=== PATIENT | male | born 1990 | race Caucasian/White ===

== ENCOUNTER 2018-05-23 19:36 | Emergency (ER) | payer SELFPAY ==
[2018-05-23 19:37] VITALS: BP 166/98; PULSE 99; RESP 18; TEMP 37.1; O2SAT 97; BMI 34.2
[2018-05-23 20:03] LABS: Mucous, Urine 0 SEEN /hpf (<or=2+)
[2018-05-23 20:14] LABS: Color, Urine Yellow (Yellow); Glucose, Dipstick Normal (Normal); Ketone-Dipstick 5 mg/dl (Negative); Leukocyte Esterase-Dipstick 25 /ul (Negative); Nitrite-Dipstick Negative (Negative); Occult Blood-Urine 250 /ul (Negative); Protein-Dipstick 100 mg/dl (Negative); Specific Gravity, Urine 1.015 (1.002-1.030); Urine Bilirubin Dipstick Negative (Negative); Urine Clarity Sl. Cloudy (Clear); Urine Urobilinogen Normal (Normal)
[2018-05-23 20:24] LABS: Bacteria 1+ /hpf (None Seen); Red Blood Cells-Urine > 100 SEEN /hpf (0-5); Squamous Epithelial Cells - UA 5-10 SEEN /hpf (0-5); White Blood Cells 5-10 SEEN /hpf (0-5)
--- NOTE | 2018-05-23 21:59 | ED.DCSUM_ITS ---
- ER Visit Summary Date of Service: 05/23/18 Chief Complaint: Feels like UTI History of Present Illness: The patient is a 28 M presenting with concern for UTI. Patient has had these symptoms in the past associated with a UTI. He complains of urinary urgency, dysuria. He noticed blood in his urine today. He denies back pain or abdominal pain. Denies concern for STD. He denies fever. Denies testicular pain or swelling. Denies other complaints. Physical Examination: Vitals are stable. Patient is afebrile. Alert no acute distress. Nontoxic HEENT exam is unremarkable. Lungs are clear and equal bilaterally. Heart is regular rate and rhythm. Abdomen is soft nontender nondistended. No guarding or rebound : normal, no testicular tenderness, no discharge, no rash Back: no CVA tenderness Extremities are unremarkable. Skin is warm and dry. Remainder of exam is unremarkable. Emergency Department Course and Treatment: Urinalysis shows 5-10 white blood cells, over 100 red blood cells, 1+ bacteria. Culture was sent for GC and chlamydia. Urine culture was sent. He is given Cipro. Advised to follow-up with his primary care physician. Advised return to ED if worsening complaints. Disposition: Discharge home Impression: UTI This note was generated with [employer] dictation software. It may contain incorrect words, spelling, and punctuation that were not noted in review of the chart prior to signing ED Disposition - Plan for ED Patient: Chief Complaint: Complaint Referrals: Olivier Bah III, MD [Primary Care Provider] -
--- NOTE | 2018-05-23 21:59 | ED.DEP ---
ED Disposition - Plan for ED Patient: Chief Complaint: Complaint Instructions: ED UTI Cystitis Male Prescriptions: Ciprofloxacin [Cipro] 500 mg PO BID #14 tablet Referrals: Olivier Bah III, MD [Primary Care Provider] -
[2018-05-23] MEDS: Ciprofloxacin 500 MG Tablet PO (22:07)
[2018-05-23 22:19] VITALS: BP 166/98; PULSE 99; RESP 18; O2SAT 97
[2018-05-24 00:17] LABS: Chlamydia Trachomatis by PCR Negative (Negative); Neisserai gonorrhoeae by PCR Negative (Negative); Probe Check PASS; Sample Adequacy Control PASS; Specimen Processing Control PASS
== END 2018-05-23 22:30 | disposition home or self-care (01) ==
PROVIDERS: Emergency Provider Emergency Medicine; Family Provider Family Medicine; PCP Family Medicine
DX: N39.0 Urinary tract infection, site not specified (principal); R31.9 Hematuria, unspecified; I10 Essential (primary) hypertension; Z79.899 Other long term (current) drug therapy
CPT/HCPCS: 81001; 87086; 87491; 87591; 99283

== ENCOUNTER 2019-09-10 21:28 | Emergency (ER) | payer SELFPAY ==
[2019-09-10 21:28] VITALS: BP 157/94; PULSE 90; RESP 15; TEMP 36.7; O2SAT 98; BMI 37.5
--- NOTE | 2019-09-10 22:07 | RAD_ITS ---
HISTORY: Constipation. Last bowel movement 3 days ago. Comparison imaging of the abdomen is a CT scan of the abdomen and pelvis from February 25, 2014. 2 views: Patient has a broken sternal wire in the inferior aspect of the sternum that appears to be newly broken since February 25, 2014. A stent graft device is present within the descending thoracic aorta from the patient's aortic dissection. Surgical clips within the left hemiabdomen is new and is superimposed over the left renal hilum. Bowel gas pattern is normal. No free air is perceived. No pneumatosis. Stool is present within the colon and rectum but not to a pathological degree. Scoliosis is mild. RAD/Abdomen Single View IMPRESSION: No acute disease. at 2243 Reported and signed by: Hema Mcgrath MD Electronically Signed: Hema Mcgrath MD at 22:42 EST Tel , Service support ,
--- NOTE | 2019-09-10 22:46 | ED.DCSUM_ITS ---
History of Present Illness Chief Complaint: Constipation Past Medical History - Allergies and Home Meds Allergies/Adverse Reactions: Allergies fentanyl Adverse Reaction (Verified 09/10/19 21:32) Other Primary Care Physician: Olivier Bah III, MD [Primary Care Provider] - Surgical History: - - Repair of aortic dissection with a frozen elephant trunk at the [facility]. Patient had remote history of aortic valve repair without replacement. Smoking Status: Current every day smoker - Family History Paternal Family History: Reports: Stroke - There is unclear if this was a cerebral aneurysm or not., - - Marfan's disease. Father had been temporarily on hemodialysis. Review of Systems General: Denies: Chills, Fever, Sweats Eyes: Denies: Visual changes - bilaterally, Diplopia ENT: Denies: Rhinorrhea, Sore throat Cardiovascular: Denies: Chest pain, Palpitations Respiratory: Denies: Dyspnea, Cough, Dyspnea on exertion Gastrointestinal: Reports: Constipation. Denies: Abdominal pain, Nausea, Vomiting, Diarrhea, Melena, Hematochezia Genitourinary: Denies: Dysuria, Hematuria, Frequency Musculoskeletal: Denies: Back pain, Extremity Pain Skin: Denies: Rash, Wounds Neurological: Denies: Headache, Weakness, Numbness Physical Exam Vital Signs/Narrative: Vital Signs Temp Pulse Resp BP Pulse Ox 09/10/19 21:28 98.0 F 90 15 157/94 H 98 Inital Vital Signs reviewed: Yes General: Well nourished, Well developed, No Acute Distress Diagnostic/Tx/Re-eval - Medical Decision Making Abdominal x-ray reveals stool throughout the colon. A lot of the stool appears well formed and I suspect that there is not a fecal impaction but rather diffuse constipation. Patient will be taking magnesium citrate and was encouraged to drink plenty of fluids and start a stool softener. Patient also is asking referral to a manufacturing director for a lesion on his back. There is a small papular lesion that is pearly white. I will refer him to dermatology He is asking also what to do about chronic ingrown toenails and hammertoes and I will refer him to podiatry ED Disposition - Plan for ED Patient: Disposition: Home or Assisted Living Diagnosis: Constipation Instructions: CONSTIPATION (Adult) Prescriptions: Magnesium Citrate [Citrate Of Magnesia] 300 ml PO X1 #2 bottle Prescription Printed Referrals: Olivier Bah III, MD [Primary Care Provider] - As Needed Xi Marx [NON-STAFF] - (for dermatology) Thomas Jon DPM [STAFF PHYSICIAN] - (for your toes)
[2019-09-10 23:06] VITALS: PULSE 78; RESP 16; O2SAT 98
[2019-09-10] MEDS: Magnesium Citrate 300 ML PO (23:06)
== END 2019-09-10 23:07 | disposition home or self-care (01) ==
PROVIDERS: Emergency Provider Emergency Medicine; Family Provider Family Medicine; PCP Family Medicine
DX: K59.00 Constipation, unspecified (principal); R23.8 Other skin changes; L60.0 Ingrowing nail; M20.40 Other hammer toe(s) (acquired), unspecified foot; F17.200 Nicotine dependence, unspecified, uncomplicated
CPT/HCPCS: 74018; 99282

== ENCOUNTER 2019-12-13 09:29 | Emergency (ER) | payer SELFPAY ==
[2019-12-13 09:30] VITALS: BP 176/98; PULSE 86; RESP 18; TEMP 36.8; O2SAT 99; BMI 34.0
--- NOTE | 2019-12-13 09:34 | ED.RN ---
bp in triage taking on left arm 176/98. rechecked on rt arm 166/91.
--- NOTE | 2019-12-13 09:44 | CT_ITS ---
STUDY: CTA OF THE ABDOMINAL AORTA REASON FOR EXAM: Male, 29 years old. PT STATED ABD PAIN RADIATING TO BACK, HX OF MARFAN SYNDROME, HX AORTIC DISSECTION WITH REPAIR 2013 RADIATION DOSAGE (If Supplied By Facility): CTDIvol = ( 19.51 ) mGy, DLP = ( 1443.40 ) mGycm TECHNIQUE: Axial CT angiography multi-detector data acquisition was obtained from the to the following intravenous administration of 100ML ISOVUE 370. Axial images and MIP images were reconstructed from the axial data set. Post-processing of the angiographic images was performed, with multiplanar reformation and 3D reconstruction. Individualized dose optimization techniques were used for this CT. TECHNICAL QUALITY: Good COMPARISON: Comparison is made with prior examination dated February 25, 2014. Descriptors of Narrowing: None (0%) Mild (< 50%) Moderate (50-70%) Severe (70-90%) Subtotal/Total Occlusion (90-100%) Non-Evaluable (technically non-diagnostic FINDINGS: There is evidence of a type B dissection of the descending thoracic aorta just distal to the origin of the left subclavian artery extending down into the distal abdominal aorta. A stent graft is seen within the aortic arch and descending thoracic aorta within the true lumen. This extends into the distal portion of the thoracic aorta. There is partial opacification of the false lumen which lies along the medial aspect of the aorta. The aorta is dilated with a transverse dimension of 7.4 cm. This has progressed as compared to prior study. In the distal portion of the aortic arch. There is evidence of enlargement of the aorta. This measures 7.3 cm. Mural thrombus is seen outside the stent. Abdominal aorta: There is evidence of a dissection involving the abdominal aorta from the hiatus down to the distal aorta. Both the false and true lumens are opacified. The false lumen is bigger than the true lumen. The visceral branches of the superior mesenteric artery and celiac artery as well as the renal arteries originate from the true lumen. This extends to the common iliac arteries. The common iliac arteries are patent. There is no evidence of dissection. 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 The false lumen is bigger than the true lumen. The visceral branches arise from the true lumen. Endoluminal stent is seen in the region of the aortic arch extending to the mid thoracic aorta with aneurysmal dilatation. There is evidence of soft tissue density lying outside the stent graft. This marrow present a leak. No prior study is available for comparison. Electronically Signed: Steven Dillon, at 11:26 EDT , Service support ,
--- NOTE | 2019-12-13 09:46 | ED.VIS.GEN ---
History of Present Illness Informant: Patient Narrative: Patient presents the emergency room with a low back pain that radiates circumferentially to the front of his lower abdomen. He states it is worse with certain movements but not all. He states he thinks it may be musculoskeletal or a kidney stone. He states he has a history of Marfan's and has had aortic dissection surgical repair. He states that he is worried about aortic aneurysm. He states the pain is pulsating with his pulse. He notes testicular sensitivity wonders if that could be a kidney stone. He also notes that he tried to urinate this morning but could not. No nausea vomiting. No constipation though he did not have a bowel movement yesterday or today. No fevers or rashes. <Rafal Nguyen - Last Filed: 12/13/19 13:41> <Ramon Astudillo - Last Filed: 12/13/19 20:52> Chief Complaint: Abd Pain Past Medical History Surgical History: - - Repair of aortic dissection with a frozen elephant trunk at the [facility]. Patient had remote history of aortic valve repair without replacement. Smoking Status: Current every day smoker - Family History Paternal Family History: Reports: Stroke - There is unclear if this was a cerebral aneurysm or not., - - Marfan's disease. Father had been temporarily on hemodialysis. <Rafal Nguyen - Last Filed: 12/13/19 13:41> <Ramon Astudillo - Last Filed: 12/13/19 20:52> - Allergies and Home Meds Allergies/Adverse Reactions: Allergies fentanyl Adverse Reaction (Verified 12/13/19 09:32) Other Primary Care Physician: Olivier Bah III, MD [Primary Care Provider] - 3-5 Days Review of Systems General: Denies: Chills, Fever, Sweats Eyes: Denies: Visual changes - bilaterally, Diplopia ENT: Denies: Rhinorrhea, Sore throat Cardiovascular: Denies: Chest pain, Palpitations Respiratory: Denies: Dyspnea, Cough, Dyspnea on exertion Gastrointestinal: Reports: Abdominal pain. Denies: Nausea, Vomiting, Diarrhea, Melena, Hematochezia Genitourinary: Denies: Dysuria, Hematuria, Frequency Musculoskeletal: Reports: Back pain. Denies: Extremity Pain Skin: Denies: Rash, Wounds Neurological: Denies: Headache, Weakness, Numbness <Rafal Nguyen - Last Filed: 12/13/19 13:41> Physical Exam Vital Signs/Narrative: Vital Signs Temp Pulse Resp BP Pulse Ox 12/13/19 09:30 98.2 F 86 18 176/98 H 99 Inital Vital Signs reviewed: Yes General: Well nourished, Well developed, No Acute Distress Head: Normocephalic, Atraumatic Eyes: Perrl, EOMI ENT: Moist mucous membranes, No rhinorrhea Neck: Supple, Nontender Cardiovascular: Regular rate, Regular rhythm, No murmurs Respiratory: No distress, CTA bilaterally, Chest nontender Abdomen: Soft, Nontender, Nondistended, Normal bowel sounds, - - There is no palpable abdominal mass though body habitus does limit complete and confident examination Back: Nontender, Normal Inspection, - - The back is nontender to palpation however when I sit him up to 90 degrees and have him start to lean more forward flex and in the lumbar spine he complains of pain. Extremities: Nontender, No edema Skin: Normal color, No rash Neurological: Alert, Oriented x3, Cranial nerves II-XII grossly intact, Normal Strength, Normal Sensation Psychological: - - Patient appears anxious <Rafal Nguyen - Last Filed: 12/13/19 13:41> Vital Signs/Narrative: Vital Signs Pulse Resp BP Pulse Ox 12/13/19 13:00 75 22 H 132/67 H 96 <Ramon Astudillo - Last Filed: 12/13/19 20:52> Diagnostic/Tx/Re-eval - Medical Decision Making Basic labs show a leukocytosis of 15.7. Urinalysis is normal. Creatinine is normal. Patient's blood pressure significantly proved since he has been resting in the room. Currently at the time of this dictation he is 126/74. Heart rate is in the mid 70s. CTA of the chest abdomen pelvis was obtained. It needs to be noted that we do not have any other imaging of his aorta since 2013 which was the time of his dissection. On his imaging today there is evidence of a type B dissection of the aortic arch extending down into the distal abdominal aorta with opacification of the true and false lumen. The false lumen is bigger than the true lumen. The visceral branches arise from the true lumen. There is an endoluminal stent seen in the region of the aortic arch extending to the mid thoracic aorta with aneurysmal dilatation. There is evidence of soft tissue density line outside the stent graft. This may represent a leak. The aorta is dilated with a transverse diameter of 7.4 cm the abdominal aorta. Upon receipt of the CT read and discussion with the radiologist I called [facility] where he had a surgery and asked to speak with CT surgery. I am told that the surgeon long distance billing operator is currently operating and will call me back as soon as he is finished. It is unclear whether or not today's findings of is different than his post repair. Patient has been kept comfortable using morphine. Patient informed nursing who informed me that he feels that if he does not have an answer by 1430 hrs. he will leave AMA. - Critical Care Time Critical care time (excluding procedures): 30-74 minutes, Discussing w/Patient &/or Family/Mannequin Mold Maker, Discussing w/Consultants, Arranging Admission or Transfer, Performing Direct Patient Care at Bedside - 35 minutes <Rafal Nguyen - Last Filed: 12/13/19 13:41> - Medical Decision Making Care of the patient was turned over to me. [facility] did call back and recommended transferring the patient to the [facility] for evaluation. Patient is agreeable with this plan. Patient does want to know if he is allowed visitors. We will obtain this information when [facility] calls back with a bed and arrangements are being made. Patient was given repeat doses of morphine. Patient will be transferred to [facility] in stable condition. <Ramon Astudillo - Last Filed: 12/13/19 20:52> ED Disposition <Rafal Nguyen - Last Filed: 12/13/19 13:41> <Ramon Astudillo - Last Filed: 12/13/19 20:52> - Plan for ED Patient: Disposition: [facility] - Main Diagnosis: Lumbar back pain Instructions: ED Back Pain Acute or Chronic Prescriptions: Diazepam [Valium] 5 mg PO Q8 PRN #15 tab PRN Reason: back pain Prescription Printed Referrals: Olivier Bah III, MD [Primary Care Provider] - 3-5 Days Additional Instructions: I recommend Tylenol for pain and Valium to help muscles relax. Recommend use a heating pad. I would recommend following up with your doctor both locally and at [facility].
[2019-12-13] MEDS: Ondansetron 4 MG/2 ML Vial IV (09:48)
[2019-12-13] MEDS: Morphine 4 MG/ML Syringe IV ×5 (09:48→18:07)
[2019-12-13] MEDS: 0.9% Normal Saline 1,000 ML 150 ML IV ×2 (09:50→18:09)
[2019-12-13 09:56] LABS: Absolute Neutrophil Count 9.6 X10^3/uL (2.0-7.7); Basophil# 0.13 X10^3/uL; Basophil% 0.8 % (0-1); Eosinophil# 0.11 X10^3/uL; Eosinophils% 0.7 % (0-5); Hematocrit 43.1 % (40-54); Hemoglobin 14.4 g/dL (13.0-16.5); Lymphocyte % 21.7 % (19-41); Mean Corp Hgb Conc 33.4 g/dL (32-36); Mean Corpuscular Hgb 29.4 pg (27.0-32.0); Mean Corpuscular Volume 88.1 fL (80-94); Mean Platelet Vol. 10.2 fl (6.2-12.0); Monocyte# 2.35 X10^3/uL; NRBC Flagged by Analyzer 0 % (0-5); Neutrophil # 9.61 X10^3/uL (2.7-7.7); Neutrophil % 61.2 % (47-70); POSITIVE DIFFERENTIAL YES; Platelet Count 497 K/mm3 (150-450); RBC Distribution Width SD 41.9 fl (35.1-43.9); Red Blood Count 4.89 M/mm3 (4.6-6.2); White Blood Count 15.7 K/mm3 (4.4-11.0)
[2019-12-13 09:58] LABS: Differential Indicated SCAN CRITERIA MET
--- NOTE | 2019-12-13 10:03 | ED.RN ---
PT ATTEMPTED TO URINATE, UNABLE.
[2019-12-13 10:14] LABS: Differential Comment SCANNED
[2019-12-13 10:15] LABS: Red Cell Morphology NORM C+C NORMAL (NORM C&C)
[2019-12-13 10:18] LABS: AST(SGOT) 24 U/L (15-37); Alanine Aminotransfer ALT/SGPT 28 U/L (16-61); Albumin, Serum 4.3 g/dL (3.2-5.0); Alkaline Phosphatase 59 U/L (45-117); Anion Gap 4 (5-15); BUN 18 mg/dL (7-18); BUN/Creat Ratio 15.4 RATIO (10-20); Calcium,Total 9.1 mg/dL (8.5-10.1); Chloride 104 mmol/L (98-107); Creatinine, Serum 1.17 mg/dL (0.70-1.30); EST Glomerular Filtration Rate 77 mL/min (>60); Est Glom Filt Rate - Afr Amer 94 mL/min (>60); Estimated Creatinine Clearance 113.34 ml/min; Globulin 4.1 g/dL (2.2-4.2); Glucose 108 mg/dL (74-106); Lipase 102 U/L (73-393); Potassium 3.6 mmol/L (3.5-5.1); Protein, Total 8.4 g/dL (6.4-8.2); Sodium Level 138 mmol/L (136-145)
[2019-12-13 11:40] VITALS: BP 123/56; PULSE 69; RESP 17; O2SAT 98
[2019-12-13 12:02] LABS: Bacteria 0 SEEN /hpf (None Seen); Mucous, Urine 0 SEEN /hpf (<or=2+); Squamous Epithelial Cells - UA 0 SEEN /hpf (0-5); White Blood Cells 0 SEEN /hpf (0-5)
[2019-12-13 12:11] LABS: Color, Urine Yellow (Yellow); Glucose, Dipstick Normal (Normal); Ketone-Dipstick Negative (Negative); Leukocyte Esterase-Dipstick Negative /ul (Negative); Nitrite-Dipstick Negative (Negative); Occult Blood-Urine 25 /ul (Negative); Protein-Dipstick 30 mg/dl (Negative); Specific Gravity, Urine 1.015 (1.002-1.030); Urine Bilirubin Dipstick Negative (Negative); Urine Clarity Clear (Clear); Urine Urobilinogen Normal (Normal)
[2019-12-13 12:22] LABS: Red Blood Cells-Urine 0-5 SEEN /hpf (0-5)
[2019-12-13 13:00] VITALS: BP 132/67; PULSE 75; RESP 22; O2SAT 96
--- NOTE | 2019-12-13 15:49 | CM.ED ---
Social Work Consult: Support Informant: DIXON Baig Met with patient in room. Patient tearful with surgery and transfer to [facility] without support person. [facility] currently following COVID-19 policies and procedures. Patient stating to need support person with patient for these things. This bilingual social worker clarifying with medical team that at this time patient is being transferred for an evaluation at [facility] and it is not clear if patient will need surgery or not, this bilingual social worker communicating this to patient further. Patient voicing understanding. Charge nurse Safia calling [facility] and inquiring about visitation restrictions and if any exceptions are made with surgeries. Patient stating to not need support person at this time but to want to be able to have support person with patient in [place]. This bilingual social worker voicing to patient that medical team may not be able to confirm if patient support person can be with patient in [facility] and that patient may need to keep taking things one step at a time. This bilingual social worker encouraging patient to be open to medical team along the way whether that be in [place] or [place]. Patient stating I will leave if patient is unable to confirm that visitor is able to be with patient, again this bilingual social worker communicating to patient that the team might not be able to confirm this and the medical team is looking into this for patient. Patient voicing understanding. Active support and listening provided. Medical team updated. Joe MAYERS, BENITO
--- NOTE | 2019-12-13 16:33 | CM.ED ---
Social Work Per Safia, RN no visitors at [facility] at this time due to COVID-19 precautions. Patient updated on this information and voicing understanding. Patient resting calmly in bed at this time and speaking with mother. Patient voicing no further questions and wants to be transferred to [facility]. Joe MAYERS, BENITO
[2019-12-13 16:54] VITALS: BP 152/83; PULSE 64; RESP 16; O2SAT 96
--- NOTE | 2019-12-13 17:08 | ED.RN ---
spoke with Jayleen from [facility] main and gave report. ground squad acls per dr. Astudillo.
--- NOTE | 2019-12-13 17:47 | CM.ED ---
Strategic Partnership Manager Meeting with patient in room to provide further support. Patient now resting in bed and stating to be okay. Patient no longer tearful at this time. Further encouragement and support provided for patient. Patient voicing no questions at this time. Joe MAYERS, BENITO
[2019-12-13 17:56] VITALS: BP 141/62; PULSE 66; RESP 16; TEMP 37.1; O2SAT 100
[2019-12-13 18:14] VITALS: BP 169/82; PULSE 80; RESP 18; TEMP 37; O2SAT 100
--- NOTE | 2019-12-13 18:19 | ED.RN ---
THIS NURSE CALLED [facility] MAIN AND INFORMED THAT PT WILL BE LEAVING WITHIN 5 MINUTES.
[2019-12-14 10:55] LABS: Pathologist Review Reviewed
== END 2019-12-13 18:29 | disposition short-term general hospital (02) ==
PROVIDERS: Emergency Provider Emergency Medicine; PCP Family Medicine
DX: M54.5 Low back pain (principal); R10.30 Lower abdominal pain, unspecified; Q87.40 Marfan syndrome, unspecified; Z79.82 Long term (current) use of aspirin; Z79.899 Other long term (current) drug therapy; F17.200 Nicotine dependence, unspecified, uncomplicated
CPT/HCPCS: 71275; 74175; 80053; 81001; 83690; 85025; 96361; 96374; 96375; 96376; 99284; J7030; Q9967; A4216; J2405

== ENCOUNTER 2020-05-25 23:44 | Inpatient (IN) | payer SELFPAY ==
[2020-05-25 23:44] VITALS: BP 177/91; PULSE 82; RESP 20; TEMP 35.9; O2SAT 98; BMI 35.8
[2020-05-25 23:50] VITALS: BMI 35.8
[2020-05-25 23:54] VITALS: BP 177/91; PULSE 82; RESP 20; O2SAT 98
--- NOTE | 2020-05-25 23:54 | EKG12_ITS ---
Test Reason : STROKE Blood Pressure : / mmHG Vent. Rate : 072 BPM Atrial Rate : 072 BPM P-R Int : 180 ms QRS Dur : 118 ms QT Int : 410 ms P-R-T Axes : 051 078 041 degrees QTc Int : 448 ms Normal sinus rhythm Non-specific intra-ventricular conduction delay Borderline ECG Confirmed by CYRUS SALINAS, AMY ([id number]), subeditor SIDNEY AREVALO ([id number]) on 05/31/2020 8:19:44 AM Referred By: Sunny Hilton Confirmed By:BALA BRIDGES MD
--- NOTE | 2020-05-25 23:54 | CT_ITS ---
STUDY: CT BRAIN WITHOUT CONTRAST REASON FOR EXAM: Male, 30 years old. SLURRED SPEECH POST HEART CATH THIS AM RADIATION DOSAGE (If Supplied By Facility): CTDIvol = ( 44.99 ) mGy, DLP = ( 812.98 ) mGycm TECHNIQUE: Transaxial CT imaging of the brain was performed without administration of intravenous contrast material. Individualized dose optimization techniques were used for this CT. COMPARISON: No relevant priors. FINDINGS: Normal soft tissue structures. Normal calvarium. Normal size ventricles and extra-axial spaces for the patient''s age. Normal white matter tracts of the cerebral hemispheres. Normal basal ganglia and thalami. Normal brainstem. Normal cerebellum. There is no intracranial hemorrhage. There are no findings of an acute ischemic infarction. Normal visualized paranasal sinuses. CT/Brain/Head without Contrast IMPRESSION: Normal unenhanced CT scan of the brain. N.B. : The above information has been verbally conveyed by Jazmyn Pedroza to Janusz Bond MD, on 05/26/2020 00:14:14 (ET). Electronically Signed: Jazmyn Pedroza, at 0:10 EDT Tel , Service support ,
[2020-05-25 23:55] VITALS: O2SAT 98
--- NOTE | 2020-05-25 23:55 | CT_ITS ---
STUDY: CTA HEAD AND NECK WITH CONTRAST REASON FOR EXAM: Male, 30 years old. SLURRED SPEECH AT 4PM-PT HAD HEART CATH DONE AT 730 AM,HAS ELEVATED BP NOW -- HX:ASTHMA,HTN,MARFAN''S SYNDROME,CKD STAGE 3 -- THORACIC AORTIC DISSECTION WITH REPAIR AND HEART VALVE REPAIR RADIATION DOSAGE (If Supplied By Facility): CTDIvol = ( 24.14 ) mGy, DLP = ( 744.29 ) mGycm TECHNIQUE: CT angiography was performed with a multi-detector CT scanner. Data acquisition was obtained from the skull base through the vertex following intravenous administration of IV 100mL Isovue-370. MIP images were reconstructed from the axial data set. Post-processing of the angiographic images was performed, with multiplanar reformation and 3D reconstruction. Individualized dose optimization techniques were used for this CT. COMPARISON: No relevant priors. FINDINGS: Normal bilateral petrous carotid arteries. Normal right cavernous carotid artery with a normal supraclinoid bifurcation. Normal left cavernous carotid artery with a normal supraclinoid bifurcation. Normal right A1 segments of the anterior cerebral artery. Normal left A1 segments of the anterior cerebral artery. Normal intact anterior communicating artery (ACOM). Normal bilateral A2 segments of the anterior cerebral arteries. Normal right M1 and M2 segments of the middle cerebral arteries, with a normal M1 bifurcation. Normal left M1 and M2 segments of the middle cerebral arteries, with a normal M1 bifurcation. Normal right posterior communicating artery (PCOM). Normal left posterior communicating artery (PCOM). Normal bilateral vertebral arteries. Normal basilar artery with a normal basilar bifurcation. The visualized bilateral superior cerebellar (SCA) arteries are normal. Normal bilateral P1, P2 and visualized P3 segments of the posterior cerebral arteries. There is no demonstrated aneurysm of the [place]. There is no demonstrated abnormality of the visualized brain. AORTIC ARCH: Normal visualized aortic arch. Normal origins of the brachiocephalic, left common carotid, and left subclavian arteries. RIGHT CAROTID ARTERIES: Normal right common carotid artery (CCA). Normal right common carotid bulb. Normal origin of the right internal carotid (ICA) artery without a hemodynamically significant stenosis. Normal visualized cervical portion of the right internal carotid artery. Normal origin of the right external carotid artery (ECA). LEFT CAROTID ARTERIES: Normal left common carotid artery (CCA). Normal left common carotid bulb. Normal origin of the left internal carotid (ICA) artery without a hemodynamically significant stenosis. Normal visualized cervical portion of the left internal carotid artery. Normal origin of the left external carotid artery (ECA). VERTEBRAL ARTERIES: Normal bilateral vertebral arteries. CT/CTA Head AND Neck W/ Contrast IMPRESSION: Normal CTA Head and neck with contrast. N.B. : The above information has been verbally conveyed by Jazmyn Pedroza to Dr. Janusz Bond MD, on 05/26/2020 00:37:10 (ET). Electronically Signed: Jazmyn Pedroza, at 0:41 EDT Tel , Service support ,
--- NOTE | 2020-05-25 23:57 | ED.DCSUM_ITS ---
History of Present Illness Chief Complaint: Neuro S/Sx Informant: Patient Onset: Today - see below Context: - - awoke w/ sx at 1400; last known well 0800 Quality and Location: Slurred Speech Onset: see below Current Severity: Moderate Maximum Severity: Moderate Worsened by: nothing Relieved by: nothing Associated Symptoms: Negative for: Headache, Nausea, Vomiting, Chest Pain Narrative: Patient states that he has Marfan syndrome and a thoracic aortic aneurysm in addition to some other heart condition, for which he was having a scheduled heart cath at [facility] this morning, at 7:30 or 8:00. He states he fell asleep during the procedure and does not know when he fell asleep as far as the time. When he woke up, he had the speech symptoms, but did not have them when he went into the procedure. He is having trouble saying what he wants to, and he is saying words that are somewhat slurred. He states he remembers waking up at 1400 today, which is just about 10 hours prior to arrival here in the ER, and does not know exactly how long the procedure lasted. The staff that was caring for him was aware of his speech difficulty, and suspected it was related to medications that he got, he was discharged and he was told that the symptoms should resolve with time. He presents here to the emergency department at [facility] because the symptoms have not improved. He denies any new neurologic symptoms. He has a disconjugate gaze that he states is normal for him, and he notes no vision changes. He denies headache, nausea, vomiting, chest pain, shortness of breath. - Past Medical History (1) Anemia Status: Chronic (2) Aortic dissection Status: Chronic (3) Asthma Status: Chronic (4) CKD (chronic kidney disease) stage 3, GFR 30-59 ml/min Status: Chronic (5) Marfan syndrome Status: Chronic Past Medical History - Allergies and Home Meds Allergies/Adverse Reactions: Allergies fentanyl Adverse Reaction (Verified 05/25/20 23:44) Other Primary Care Physician: Olivier Bah III, MD [Primary Care Provider] - Surgical History: - - Repair of aortic dissection with a frozen elephant trunk at the [facility]. Patient had remote history of aortic valve repair without replacement. Smoking Status: Never smoker - Family History Paternal Family History: Reports: Stroke - There is unclear if this was a cerebral aneurysm or not., - - Marfan's disease. Father had been temporarily on hemodialysis. Review of Systems General: Denies: Chills, Fever, Sweats Eyes: Denies: Visual changes - bilaterally, Diplopia ENT: Denies: Rhinorrhea, Sore throat Cardiovascular: Denies: Chest pain, Palpitations Respiratory: Denies: Dyspnea, Cough, Dyspnea on exertion Gastrointestinal: Denies: Abdominal pain, Nausea, Vomiting, Diarrhea, Melena, Hematochezia Genitourinary: Denies: Dysuria, Hematuria, Frequency Musculoskeletal: Denies: Back pain, Swelling, Extremity Pain Skin: Denies: Rash, Wounds Neurological: Reports: - - Speech difficulty. No disequilibrium or dizziness/vertigo.. Denies: Headache, Weakness, Numbness STROKE Vital Signs/Narrative: Vital Signs Temp Pulse Resp BP Pulse Ox 05/25/20 23:44 96.6 F L 82 20 H 177/91 H 98 Inital Vital Signs reviewed: Yes - NIHSS Initial 1a Level of Consciousness: 0 1b LOC Questions (Score 2 if aphasic/stupor): 0 1c LOC Commands (Only score 1st attempt): 0 2 Best Gaze (If aphasic, use reflexive mvmts.): 0 3 Visual: 0 4 Facial Palsy: 0 5 Motor Arm Right (UN = amputation/fusion): 0 5 Motor Arm Left: 0 6 Motor Leg Right: 0 6 Motor Leg Left: 0 7 Limb ataxia (Only + if out of proportion): 0 8 Sensory (Aphasia/stupor=0 or 1, coma=2): 0 9 Best Language: 1 10 Dysarthria (mute, coma=2, intubated=UN): 1 11 Extinction and Inattention (only scored if +): 0 Total Score: 2 General: Well nourished, Well developed Head: Normocephalic, Atraumatic Eyes: Perrl, EOMI - dysconjugate gaze, baseline per pt ENT: Moist mucous membranes, No rhinorrhea Neck: Supple, Nontender Cardiovascular: Regular rate, Regular rhythm, Murmur - systolic. radiates to both carotids. Respiratory: No distress, CTA bilaterally, Chest nontender Abdomen: Soft, Nontender, Nondistended, Normal bowel sounds Back: Nontender, Normal Inspection Extremities: Nontender, No edema. Negative for: Calf Tenderness Skin: Normal color, No rash, No Trauma Neurological: Alert, Oriented x3, Cranial nerves II-XII grossly intact, Normal Strength, Normal Sensation Psychological: Normal affect, Normal Mood Diagnostic/Tx/Re-eval Impressions Brain CT 05/25/20 23:54 IMPRESSION: Normal unenhanced CT scan of the brain. N.B. : The above information has been verbally conveyed by Jazmyn Pedroza to Janusz Bond MD, on 05/26/2020 00:14:14 (ET). Electronically Signed: Jazmyn Pedroza, at 0:10 EDT Tel , Service support , Head/Neck CTA 05/25/20 23:55 IMPRESSION: Normal CTA Head and neck with contrast. N.B. : The above information has been verbally conveyed by Jazmyn Pedroza to Dr. Janusz Bond MD, on 05/26/2020 00:37:10 (ET). Electronically Signed: Jazmyn Pedroza, at 0:41 EDT Tel , Service support , ADDENDUM: 05/26/20 0048 IMPRESSION: Normal CTA Head and neck with contrast. N.B. : The above information has been verbally conveyed by Jazmyn Pedroza to Dr. Janusz Bond MD, on 05/26/2020 00:37:10 (ET). Electronically Signed: Jazmyn Pedroza, at 0:41 EDT Tel , Service support , 05/25/20 23:54 Brain/Head without Contrast [CT] Stat 05/25/20 23:55 CTA Head AND Neck W/ Contrast [CT] Stat 05/26/20 00:30 Chest 1 View [RAD] Stat Laboratory Results 05/25/20 05/25/20 05/25/20 23:50 23:50 23:50 WBC 12.7 H RBC 4.58 L Hgb 12.3 L Hct 38.4 L MCV 83.8 MCH 26.9 L MCHC 32.0 RDW Std Deviation 43.2 RDW Coeff of Jacinta 14.5 Plt Count 480 H MPV 9.9 Immature Gran % (Auto) 0.400 Neut % (Auto) 60.1 Lymph % (Auto) 25.1 [place] % (Auto) 13.2 H Eos % (Auto) 0.6 Baso % (Auto) 0.6 Absolute Neuts (auto) 7.6 Absolute Lymphs (auto) 3.18 Nucleated RBC % 0 Differential Comment SCANNED Diff Path Review May foll PT 13.8 INR 1.1 APTT 33.5 Sodium 137 Potassium 3.6 Chloride 103 Carbon Dioxide 30.0 Anion Gap 4 L BUN 21 H Creatinine 1.22 Estim Creat Clear Calc 107.71 Est GFR (MDRD) Af Amer 89 Est GFR (MDRD) Non-Af 74 BUN/Creatinine Ratio 17.2 Glucose 98 Calcium 9.1 Troponin I 0.033 POC Glucose 05/26/20 00:13 WBC RBC Hgb Hct MCV MCH MCHC RDW Std Deviation RDW Coeff of Jacinta Plt Count MPV Immature Gran % (Auto) Neut % (Auto) Lymph % (Auto) [place] % (Auto) Eos % (Auto) Baso % (Auto) Absolute Neuts (auto) Absolute Lymphs (auto) Nucleated RBC % Differential Comment Diff Path Review PT INR APTT Sodium Potassium Chloride Carbon Dioxide Anion Gap BUN Creatinine Estim Creat Clear Calc Est GFR (MDRD) Af Amer Est GFR (MDRD) Non-Af BUN/Creatinine Ratio Glucose Calcium Troponin I POC Glucose 102 - Rhythm Strip Rhythm Strip: Sinus Rhythm Rate: 72 Ectopy: None - EKG Initial EKG Interpretation: Sinus Rhythm, No Acute Injury Pattern - Medical Decision Making Stroke Team Activated: Yes Was Patient considered for Endovascular Intervention?: No - neg CTA IV Alteplase (t-PA) Administered: No - outside of IV-tPA window Discussed with [facility] stroke neurology over the phone, they agree with the plan of performing emergent CT/CT angiography. Since there was no large vessel occlusion seen on CT angiography, patient does not need to be transferred to a comprehensive stroke center. I am concerned that he could still be having a TIA or ischemic stroke, certainly his invasive intravascular procedure puts him at some risk for that. He was very apprehensive about staying in the hospital, partly because of the presence of COVID and inability of his significant other to be with him. However she came in we discussed further and he was amenable to staying. He does not want to go back to [place] at this time and prefers to stay here. Neurology does recommend at least getting an MRI and admitting him. ED Disposition - Plan for ED Patient: Disposition: Acute Care Hospital [facility] Diagnosis: Expressive aphasia Referrals: Olivier Bah III, MD [Primary Care Provider] -
[2020-05-26] VITALS (15 sets, daily range): BP systolic 98–175; BP diastolic 54–88; PULSE 62–86; RESP 14–26; TEMP 36.4–37.1; O2SAT 95–100; BMI 35.4; BMI 35.5
[2020-05-26 00:02] LABS: Absolute Lymphocyte Count 3.18 X10^3/uL (0.83-4.51); Absolute Neutrophil Count 7.6 X10^3/uL (2.0-7.7); Basophil# 0.07 X10^3/uL; Basophil% 0.6 % (0-1); Eosinophil# 0.07 X10^3/uL; Eosinophils% 0.6 % (0-5); Hematocrit 38.4 % (40-54); Hemoglobin 12.3 g/dL (13.0-16.5); Lymphocyte # 3.18 X10^3/ul (4.0); Lymphocyte % 25.1 % (19-41); Mean Corpuscular Hgb 26.9 pg (27.0-32.0); Mean Corpuscular Volume 83.8 fL (80-94); Mean Platelet Vol. 9.9 fl (6.2-12.0); Monocyte# 1.68 X10^3/uL; Monocyte% 13.2 % (0-10); NRBC Flagged by Analyzer 0 % (0-5); Neutrophil # 7.63 X10^3/uL (2.7-7.7); Neutrophil % 60.1 % (47-70); POSITIVE DIFFERENTIAL YES; Platelet Count 480 K/mm3 (150-450); RBC Distribution Width CV 14.5 % (11.6-14.6); RBC Distribution Width SD 43.2 fl (35.1-43.9); Red Blood Count 4.58 M/mm3 (4.6-6.2); White Blood Count 12.7 K/mm3 (4.4-11.0)
[2020-05-26 00:08] LABS: Differential Indicated SCAN CRITERIA MET
[2020-05-26 00:10] LABS: International Normalized Ratio 1.1; Prothrombin Time (Protime)PT. 13.8 SECONDS (11.7-14.9)
[2020-05-26 00:11] LABS: Partial Thromboplast Time 33.5 Seconds (24.1-36.2)
[2020-05-26 00:16] LABS: Bedside Glucose 102 mg/dL (70-110)
[2020-05-26 00:19] LABS: Anion Gap 4 (5-15); BUN 21 mg/dL (7-18); BUN/Creat Ratio 17.2 RATIO (10-20); Calcium,Total 9.1 mg/dL (8.5-10.1); Chloride 103 mmol/L (98-107); Creatinine, Serum 1.22 mg/dL (0.70-1.30); EST Glomerular Filtration Rate 74 mL/min (>60); Est Glom Filt Rate - Afr Amer 89 mL/min (>60); Estimated Creatinine Clearance 107.71 ml/min; Glucose 98 mg/dL (74-106); Potassium 3.6 mmol/L (3.5-5.1); Sodium Level 137 mmol/L (136-145)
--- NOTE | 2020-05-26 00:30 | RAD_ITS ---
STUDY: X-RAY CHEST REASON FOR EXAM: Male, 30 years old. MEDIALSTINAL EVAL -- SLURRED SPEECH SINCE HEART CATH 05/25 -- HX OF MARFAN''S SYNDROME TECHNIQUE: Single AP portable view of the chest. COMPARISON: None. FINDINGS: The lungs are clear and expanded. There is no demonstrated pleural abnormality. Sternal cerclage wires are present from a prior sternotomy. Normal mediastinum and breonna. Normal visualized pulmonary arteries. There is a stent at the aortic arch and descending aorta. Normal visualized thoracic spine. Normal visualized ribs, clavicles, and shoulders. There is no demonstrated abnormality of the visualized soft tissue structures of the upper abdomen. RAD/Chest 1 View IMPRESSION: No demonstrated acute cardiopulmonary process. Electronically Signed: Jazmyn Pedroza, at 1:59 EDT Tel , Service support ,
[2020-05-26 00:32] LABS: Differential Comment SCANNED
--- NOTE | 2020-05-26 01:58 | HP.PCM_ITS ---
History of Present Illness Date of Admission: 05/26/20 Chief Complaint: CVA The patient is a 30 year old M with a PMH as below who presents to the hospital 10 hours after symptom onset. His symptoms have to do with slurred speech. He was recently at the [facility] undergoing a heart cath for a history of thoracic aortic dissection secondary to his Marfan syndrome, and to plan repair for an aortic aneurysm which she is to have on Thursday. He says that his procedures at 7:30 in the morning on 05/25/2020. He states that he woke up at around 2 in the afternoon after anesthesia and stated that he had difficulty speaking. He said that staff there stated that they thought that it was related to the medications that he got discharged home. He presents to this hospital because symptoms have not resolved. He had a CT of the head in the ER which radiology read as unremarkable however [facility] neurology thought that there was some decrease in attenuation in the speech centers of his brain. CTA of the head and neck was unremarkable. He denies any weakness in his upper or lower extremities. In the ER his NIH was a 2. Past Medical History Past Medical History (Chronic Problems): Chronic Problems Pancytopenia (Chronic) Asthma (Chronic) Aortic dissection (Chronic) Marfan syndrome (Chronic) CKD (chronic kidney disease) stage 3, GFR 30-59 ml/min (Chronic) Anemia (Chronic) Allergies fentanyl Adverse Reaction (Verified 05/25/20 23:44) Other Home Medications: Ambulatory Orders Medication Instructions Recorded Amitriptyline HCl 12.5 mg PO QHS PRN 09/10/19 Lisinopril [Zestril] 10 mg PO DAILY 09/10/19 Surgical History: - - Repair of aortic dissection with a frozen elephant trunk at the [facility]. Patient had remote history of aortic valve repair without replacement. Psychiatric History: No pertinent psych hx Smoking Status: Never smoker Alcohol: None Drugs: None - *Family History Paternal History Items: Stroke - There is unclear if this was a cerebral aneurysm or not., - - Marfan's disease. Father had been temporarily on hemodialysis. Review of Systems Constitutional: Denies: Chills, Fever, Weight Change HEENT: Denies: Head Aches, Sinus Congestion, Sinus Drainage Cardiovascular: Denies: Chest Pain, Palpitations Respiratory: Denies: Cough, Shortness of breath at rest, Sputum production Gastrointestinal: Denies: Abdominal Pain, Nausea, Vomiting Genitourinary: Denies: Dysuria Musculoskeletal: Denies: Joint Pain, Joint Tenderness Skin: Denies: Rash, Wounds Neurological: Reports: Slurred speech. Denies: Focal weakness, Numbness, Tingling Psychiatric: Denies: Anxiety, Depression, Homicidal Ideations, Suicidal Ideations Hematologic/ Lymphatic: Denies: Easy Bruising, Easy Bleeding VTE Information - Inpt Only VTE Present on Admission: No Patient Problems: Active and Suspected Problems Expressive aphasia (Acute) - Physical Exam Vitals/I&O's: Vital Signs Temp Pulse Resp BP Pulse Ox 96.6 F L 76 21 H 162/78 H 99 05/25/20 23:44 05/26/20 00:30 05/26/20 00:30 05/26/20 00:30 05/26/20 00:30 Oxygen Delivery Method Room Air Weight: 294 lb 8.601 oz Body Mass Index (BMI) 35.8 Finger Stick Blood Glucose 102 General: Alert, Oriented x3, Cooperative, No apparent distress HEENT: Atraumatic, PERRLA, EOMI, Normocephalic Oral: Moist Mucosa Neck: Supple, No JVD Lungs: Clear to auscultation, Normal air movement, No rhonchi, No wheeze, No rales Cardiovascular: Regular rate, Regular Rhythm, Normal S1, Normal S2, Murmur - 2 out of 6 ARNOLDO Abdomen: Soft, Non Tender, Non-Distended, No Hepato-splenomegaly Extremities: No edema, Capillary Refill Less than 3 Seconds Skin: No rashes, No breakdown Neurological: Cranial nerves II-XII grossly intact, Deep Tendon Reflexes 2+/4 and Symmetrical, Neuro grossly intact, Motor Exam 5/5 strength throughout, Slurred Speech, Sensory exam intact to light touch and pain Psych/Mental Status: Normal Affect, Appropriate Laboratory Results 05/25/20 23:50: WBC 12.7 H, RBC 4.58 L, Hgb 12.3 L, Hct 38.4 L, MCV 83.8, MCH 26.9 L, MCHC 32.0, RDW Std Deviation 43.2, RDW Coeff of Jacinta 14.5, Plt Count 480 H, MPV 9.9, Immature Gran % (Auto) 0.400, Neut % (Auto) 60.1, Lymph % (Auto) 25.1, [place] % (Auto) 13.2 H, Eos % (Auto) 0.6, Baso % (Auto) 0.6, Absolute Neuts (auto) 7.6, Absolute Lymphs (auto) 3.18, Nucleated RBC % 0, Differential Comment SCANNED, Diff Path Review December05/25/20 23:50: PT 13.8, INR 1.1, APTT 33.5 05/25/20 23:50: Sodium 137, Potassium 3.6, Chloride 103, Carbon Dioxide 30.0, Anion Gap 4 L, BUN 21 H, Creatinine 1.22, Estim Creat Clear Calc 107.71, Est GFR (MDRD) Af Amer 89, Est GFR (MDRD) Non-Af 74, BUN/Creatinine Ratio 17.2, Glucose 98, Calcium 9.1, Troponin I 0.033 05/26/20 00:13: POC Glucose 102 Current Medications Sodium Chloride 1,000 ml/ N/A 1,000 mls @ 133.6 mls/hr IV .[id number] DORIE Stop: 05/26/20 23:56 Last Admin: 05/26/20 00:26 Dose: 1 ml/kg/hr, 133.6 mls/hr Documented by: Labetalol HCl (Trandate) 20 mg IV X1 PRN PRN Reason: BLOOD PRESSURE Assessment/Plan All Active Problems Expressive aphasia (Acute) SIRS (systemic inflammatory response syndrome) (Acute) 1. Possible CVA with expressive aphasia -Equivocal CT brain findings, there is a slight disagreement between [facility] neurology and radiology, radiology reads a CT of the brain as negative however [facility] felt that there could be hypoattenuation in the speech center -CTA of the head and neck is unremarkable -We will obtain an echo and an MRI tomorrow -We will obtain a lipid panel, can add Lipitor at that time if necessary -Unfortunately he is to have an aortic aneurysm repair on Thursday therefore he does not qualify for aspirin at this time. He states that the surgery is extremely important and that it has to happen sooner rather than later. The surgeon up at the [facility] is Dr. Garrett Valles so may need to contact him or 1 of his partners to discuss the approach to treatment if the MRI is positive for a stroke in the morning 2. History of aortic dissection repair and aortic valve repair secondary to Marfan's/cardiac cath today [facility] for evaluation -We will continue to monitor, blood pressure is stable -He is on lisinopril at home will hold to allow for permissive hypertension 3. Depression/anxiety -Stable -Continue with amitriptyline DVT: Ambulation OBSV E&M: 14833 Initial observation care L2
--- NOTE | 2020-05-26 02:14 | ED.RN ---
pt refuses to go to the floor until his girlfriend comes back with his clothes. aware.
--- NOTE | 2020-05-26 02:37 | ECHOCS_ITS ---
Reason For Study: TIA/CVA Procedure This was a 2D Doppler, Color Flow transthoracic echocardiogram. Contrast injection was performed. The study was technically difficult. Exam performed portable in patient room. Left Ventricle Concentric left ventricular hypertrophy. The estimated ejection fraction is 60 %. Left ventricular systolic function is normal. Normal diastology for age. IV contrast was used. Atria Normal left atrium. Normal right atrium. Mitral Valve Mild (1+) mitral valve insufficiency. Tricuspid Valve Mild tricuspid valve insufficiency. Pulmonary artery systolic pressure is 30 mmHg. Aortic Valve There is no aortic stenosis. No aortic valve insufficiency. Pulmonic Valve No eccentric pulmonic valve insufficiency. Great Vessels Normal ascending aorta. No evidence of dissection. GRICELDA or CT will be recommended if clinically indicated. Pericardium/Pleural No pericardial effusion. Medication Performed a rapid injection of agitated mix of 9 cc saline and 1cc air to assess for atrial septal defect. Diluted definity 2ml given slow IV push to enhance endocardial definition. MMode/2D Measurements & Calculations LVIDd: 4.9 cm IVSd: 1.6 cm LAV(MOD-bp): 73.7 ml LVIDs: 3.0 cm LVPWd: 1.8 cm RVDd: 4.8 cm FS: 38.8 % LAV(MOD-bp) Indexed: 28.2 ml/m2 LAV(MOD-sp2): 67.7 ml LAV(MOD-sp4): 71.2 ml SV(MOD-sp4): 74.8 ml SV(sp4-el): 81.6 ml LVAd ap4: 38.0 cm2 EDV(MOD-sp4): 126.6 ml EDV(sp4-el): 132.2 ml LVAs ap4: 23.3 cm2 ESV(MOD-sp4): 51.8 ml ESV(sp4-el): 50.7 ml EF(MOD-sp4): 59.1 % EF(sp4-el): 61.7 % LA dimension(2D): 4.8 cm LA A4 area: 22.5 cm2 RA A4 area: 19.2 cm2 Doppler Measurements & Calculations MV E max gee: 104.6 cm/sec Lat Peak E' Gee: 12.5 cm/sec Med Peak E' Gee: 9.8 cm/sec MV A max gee: 54.0 cm/sec E/E' lat: 8.4 E/E' med: 10.7 MV E/A: 1.9 Ao V2 max: 196.8 cm/sec LV V1 max: 101.5 cm/sec PA V2 max: 107.4 cm/sec Ao max P.5 mmHg LV V1 max P.1 mmHg Ao V2 mean: 142.3 cm/sec Ao mean P.0 mmHg Ao V2 VTI: 46.5 cm TR max gee: 258.5 cm/sec TR max P.7 mmHg Interpretation Summary Concentric left ventricular hypertrophy. The estimated ejection fraction is 60 %. Left ventricular systolic function is normal. Normal diastology for age. IV contrast was used Mild (1+) mitral valve insufficiency. Mild tricuspid valve insufficiency. No aortic valve insufficiency. Normal ascending aorta. No evidence of dissection. GRICELDA or CT will be recommended if clinically indicated Ordering Physician: Sunny Hilton Referring Physician: Olivier Bah Performed By: Meme Thomason, ILDEFONSO, RVT
--- NOTE | 2020-05-26 02:37 | MRI_ITS ---
We are attempting to reach an attending provider to discuss findings. An addendum with communication details will be sent when the communication is complete. STUDY: MRI BRAIN WITHOUT CONTRAST REASON FOR EXAM: Male, 30 years old. CVA. New onset of speech changes following heart cath on Thursday morning. History of Marfan syndrome, AAA and dissection repair TECHNIQUE: Standardized multiplanar fat and water weighted pulse sequences were obtained. COMPARISON: CT head without contrast 05/25/2020. FINDINGS: Curvilinear restricted diffusion along the cortex of the left posterior insula, the left posterior superior temporal gyrus and the left supramarginal gyrus. This is also visible on the T2 FLAIR sequence. This is subacute cortical gyral ischemic infarct. Normal size of the ventricles and extra-axial spaces for the patient''s age. Normal white matter tracts of the supratentorial brain. Normal bilateral basal ganglia. Normal thalami. There is no extra-axial fluid accumulation. Normal flow voids within the major intracranial circulation suggesting patency by spin echo criteria. Normal sella turcica, pituitary gland, infundibular stalk, optic chiasm and hypothalamus. Normal tectal plate and pineal gland. Normal midbrain, luther and medulla. Normal cerebellum. Normal basal cisterns. Normal bilateral temporal bones. Normal bilateral internal auditory canals. No demonstrated orbital abnormality, within the constraints of a routine brain study. Normal visualized paranasal sinuses. Normal calvarium and skull base. Normal visualized soft tissue structures. Normal visualized upper cervical spine. MRI/Brain without Contrast IMPRESSION: Subacute cortical gyral ischemic infarct along the left posterior insular cortex, the left superior temporal gyrus and the left supramarginal gyrus. This is most likely cardioembolic since the CTA of head and neck did not reveal any source of embolus. Electronically Signed: Sameer Celis MD at 12:34 EDT , Service support ,
[2020-05-26 07:43] LABS: Absolute Lymphocyte Count 2.77 X10^3/uL (0.83-4.51); Basophil# 0.08 X10^3/uL; Basophil% 0.6 % (0-1); Eosinophil# 0.06 X10^3/uL; Eosinophils% 0.5 % (0-5); Hematocrit 35.8 % (40-54); Hemoglobin 11.2 g/dL (13.0-16.5); Lymphocyte # 2.77 X10^3/ul (4.0); Lymphocyte % 22.3 % (19-41); Mean Corp Hgb Conc 31.3 g/dL (32-36); Mean Corpuscular Hgb 26.5 pg (27.0-32.0); Mean Corpuscular Volume 84.6 fL (80-94); Mean Platelet Vol. 9.9 fl (6.2-12.0); Monocyte# 1.45 X10^3/uL; Monocyte% 11.7 % (0-10); NRBC Flagged by Analyzer 0 % (0-5); Neutrophil # 7.98 X10^3/uL (2.7-7.7); Neutrophil % 64.4 % (47-70); Platelet Count 424 K/mm3 (150-450); RBC Distribution Width CV 14.5 % (11.6-14.6); RBC Distribution Width SD 43.9 fl (35.1-43.9); Red Blood Count 4.23 M/mm3 (4.6-6.2); White Blood Count 12.4 K/mm3 (4.4-11.0)
[2020-05-26 08:08] LABS: Anion Gap 4 (5-15); BUN 18 mg/dL (7-18); Calcium,Total 8.7 mg/dL (8.5-10.1); Chloride 105 mmol/L (98-107); Cholesterol 138 mg/dL (200); EST Glomerular Filtration Rate 93 mL/min (>60); Est Glom Filt Rate - Afr Amer 112 mL/min (>60); Estimated Creatinine Clearance 131.41 ml/min; Glucose 99 mg/dL (74-106); High Density Lipoprotein 44 mg/dL; Potassium 3.9 mmol/L (3.5-5.1); Sodium Level 136 mmol/L (136-145); Triglycerides 75 mg/dL; Very Low Density Lipoprotein 15 mg/dL (5-40)
--- NOTE | 2020-05-26 12:11 | CASEMGMT ---
SOCIAL WORK Informant: RN CARLA Reason for Consult: Self-pay Met with patient in room. Introduced role and reason for referral. Discussed self-pay status. Patient reports is over income for Medicaid. Patient stating does not wish to speak with this worker. I had a stroke and I'm confused and I have fucking people blowing up my phone. I just don't want to talk. Emotional support provided. Updated nursing on the above. This worker offered to come back at a later time. Will remain available for needs. Giuseppe Olea, FL[employer] K[employer]ITTER, INSPECTOR [employer]
--- NOTE | 2020-05-26 13:21 | PN_ITS ---
<HugoPaula [employer] - Last Filed: 05/26/20 13:33> Patient Problems: Active and Suspected Problems Expressive aphasia (Acute) Subjective: Patient seen and examined. Complains of difficulty finding words. Denies other neurologic symptoms or focal deficits. MRI of brain demonstrates subacute ischemic infarct. - Physical Exam Vitals/I&O's: Vital Signs Temp Pulse Resp BP Pulse Ox 98.1 F 62 14 98/54 L 98 05/26/20 10:55 05/26/20 12:35 05/26/20 10:55 05/26/20 10:55 05/26/20 10:55 Oxygen Delivery Method Room Air Weight: 291 lb 7.218 oz Body Mass Index (BMI) 35.4 Finger Stick Blood Glucose 102 Intake and Output for Last 24 Hours 05/24/20 05/25/20 05/26/20 23:59 23:59 23:59 Intake Total 1220 / 1220 Output Total 0 / 0 Balance 1220 / 1220 General: Alert, Oriented x3, Cooperative HEENT: Atraumatic, PERRLA, EOMI, Normocephalic Neck: Supple, No JVD, Negative Carotid Bruits Lungs: Clear to auscultation, Normal air movement Cardiovascular: Regular rate, Regular Rhythm, Murmur Abdomen: Bowel Sounds Present, Soft, Non Tender, Non-Distended Extremities: No clubbing, No cyanosis, No edema, Capillary Refill Less than 3 Seconds Skin: No rashes, No breakdown Musculoskeletal: No Tenderness to Palpation of Joints or Extremities Neurological: Cranial nerves II-XII grossly intact, Neuro grossly intact, - - Difficulty finding words, otherwise neuro grossly intact Psych/Mental Status: Normal Affect, Appropriate Laboratory Results 05/25/20 23:50: WBC 12.7 H, RBC 4.58 L, Hgb 12.3 L, Hct 38.4 L, MCV 83.8, MCH 26.9 L, MCHC 32.0, RDW Std Deviation 43.2, RDW Coeff of Jacinta 14.5, Plt Count 480 H, MPV 9.9, Immature Gran % (Auto) 0.400, Neut % (Auto) 60.1, Lymph % (Auto) 25.1, [place] % (Auto) 13.2 H, Eos % (Auto) 0.6, Baso % (Auto) 0.6, Absolute Neuts (auto) 7.6, Absolute Lymphs (auto) 3.18, Nucleated RBC % 0, Differential Comment SCANNED, Diff Path Review December05/25/20 23:50: PT 13.8, INR 1.1, APTT 33.5 05/25/20 23:50: Sodium 137, Potassium 3.6, Chloride 103, Carbon Dioxide 30.0, Anion Gap 4 L, BUN 21 H, Creatinine 1.22, Estim Creat Clear Calc 107.71, Est GFR (MDRD) Af Amer 89, Est GFR (MDRD) Non-Af 74, BUN/Creatinine Ratio 17.2, Glucose 98, Calcium 9.1, Troponin I 0.033 05/26/20 00:13: POC Glucose 102 05/26/20 06:51: WBC 12.4 H, RBC 4.23 L, Hgb 11.2 L, Hct 35.8 L, MCV 84.6, MCH 26.5 L, MCHC 31.3 L, RDW Std Deviation 43.9, RDW Coeff of Jacinta 14.5, Plt Count 424, MPV 9.9, Immature Gran % (Auto) 0.500, Neut % (Auto) 64.4, Lymph % (Auto) 22.3, [place] % (Auto) 11.7 H, Eos % (Auto) 0.5, Baso % (Auto) 0.6, Absolute Neuts (auto) 8.0 H, Absolute Lymphs (auto) 2.77, Nucleated RBC % 0 05/26/20 06:51: Sodium 136, Potassium 3.9, Chloride 105, Carbon Dioxide 27.0, Anion Gap 4 L, BUN 18, Creatinine 1.00, Estim Creat Clear Calc 131.41, Est GFR (MDRD) Af Amer 112, Est GFR (MDRD) Non-Af 93, BUN/Creatinine Ratio 18.0, Glucose 99, Calcium 8.7, Triglycerides 75, Cholesterol 138, LDL Cholesterol 79, VLDL Cholesterol 15, HDL Cholesterol 44 Current Medications Hydralazine HCl (Apresoline Iv) 5 mg IV Q30M PRN PRN Reason: to maintain BP goals Sodium Chloride () 250 mls @ 15 mls/hr IV .[id number] PRN PRN Reason: Saline Flush Sodium Chloride () 250 mls @ 15 mls/hr IV .[id number] PRN PRN Reason: Additional IVPB Infusion Labetalol HCl (Trandate) 10 - 20 mg IV Q10M PRN PRN PRN Reason: to Maintain BP Goals Sodium Chloride () 10 - 40 ml IV UD PRN PRN Reason: SALINE FLUSH Medical Necessity - Tobacco Use Smoking Status: Never smoker Tobacco Use: Non-smoker Assessment/Plan All Active Problems Expressive aphasia (Acute) SIRS (systemic inflammatory response syndrome) (Acute) 1. Subacute CVA-MRI demonstrates subacute cortical ischemic infarct along the left posterior insular cortex, the left superior temporal gyrus and the left supramarginal gyrus. Most likely cardioembolic source. CTA of head and neck unremarkable. Echocardiogram pending. Will begin aspirin, statin and consult [facility] neurology. 2. Marfan syndrome complicated by history of aortic dissection status post repair and aortic valve repair-to undergo aortic aneurysm repair Thursday. Will contact [facility], Dr. Garrett Valles to inform him of #1. 3. Hypertension-stable, continue lisinopril regimen. 4. Depression/anxiety-continue amitriptyline. DVT prophylaxis- early ambulation This patient was seen by CAMILLA Vigil under the supervision of Dr. Elise. <Oni Elise - Last Filed: 05/26/20 16:58> Objective: Seen and examined Patient has expressive aphasia and writing abnormality. General: Alert, Oriented x3, Cooperative HEENT: Atraumatic, normocephalic. Bilateral pupils are horizontal in shape. H ad bilateral eye surgery probably cataract and laser surgery. Small ears, no visual deficit on visual confrontation test Oral: No Gingival or Mucosal Lesions/ Ulcerations Neck: Supple, No JVD, Negative Carotid Bruits Lungs: Air entry diminished in bilateral lung bases. No crepitation/rhonchi Cardiovascular: Regular rate, Regular Rhythm, Normal S1, Normal S2, No murmurs. Cardiac surgery Abdomen: Bowel Sounds Present, Soft, Non Tender, Non-Distended : No renal angle tenderness. No suprapubic tenderness. Extremities: No edema, Capillary Refill Less than 3 Seconds Skin: No rashes, No breakdown Musculoskeletal: No Tenderness to Palpation of Joints or Extremities Neurological: Cranial nerves II-XII grossly intact, Deep Tendon Reflexes 2+/4 and Symmetrical, language deficit moderate. Moderate dysarthria. NIH score 2 Psych/Mental Status: Normal Affect, Appropriate. - Physical Exam Vitals/I&O's: Vital Signs Temp Pulse Resp BP Pulse Ox 98.6 F 70 15 129/63 H 96 05/26/20 15:00 05/26/20 16:11 05/26/20 15:00 05/26/20 15:00 05/26/20 15:03 Oxygen Delivery Method Room Air Weight: 291 lb 7.218 oz Body Mass Index (BMI) 35.4 Finger Stick Blood Glucose 102 Intake and Output for Last 24 Hours 05/24/20 05/25/20 05/26/20 23:59 23:59 23:59 Intake Total 1220 / 1220 Output Total 0 / 0 Balance 1220 / 1220 Laboratory Results 05/25/20 23:50: WBC 12.7 H, RBC 4.58 L, Hgb 12.3 L, Hct 38.4 L, MCV 83.8, MCH 26.9 L, MCHC 32.0, RDW Std Deviation 43.2, RDW Coeff of Jacinta 14.5, Plt Count 480 H, MPV 9.9, Immature Gran % (Auto) 0.400, Neut % (Auto) 60.1, Lymph % (Auto) 25.1, [place] % (Auto) 13.2 H, Eos % (Auto) 0.6, Baso % (Auto) 0.6, Absolute Neuts (auto) 7.6, Absolute Lymphs (auto) 3.18, Nucleated RBC % 0, Differential Comment SCANNED, Diff Path Review December05/25/20 23:50: PT 13.8, INR 1.1, APTT 33.5 05/25/20 23:50: Sodium 137, Potassium 3.6, Chloride 103, Carbon Dioxide 30.0, Anion Gap 4 L, BUN 21 H, Creatinine 1.22, Estim Creat Clear Calc 107.71, Est GFR (MDRD) Af Amer 89, Est GFR (MDRD) Non-Af 74, BUN/Creatinine Ratio 17.2, Glucose 98, Calcium 9.1, Troponin I 0.033 05/26/20 00:13: POC Glucose 102 05/26/20 06:51: WBC 12.4 H, RBC 4.23 L, Hgb 11.2 L, Hct 35.8 L, MCV 84.6, MCH 26.5 L, MCHC 31.3 L, RDW Std Deviation 43.9, RDW Coeff of Jacinta 14.5, Plt Count 424, MPV 9.9, Immature Gran % (Auto) 0.500, Neut % (Auto) 64.4, Lymph % (Auto) 22.3, [place] % (Auto) 11.7 H, Eos % (Auto) 0.5, Baso % (Auto) 0.6, Absolute Neuts (auto) 8.0 H, Absolute Lymphs (auto) 2.77, Nucleated RBC % 0 05/26/20 06:51: Sodium 136, Potassium 3.9, Chloride 105, Carbon Dioxide 27.0, Anion Gap 4 L, BUN 18, Creatinine 1.00, Estim Creat Clear Calc 131.41, Est GFR (MDRD) Af Amer 112, Est GFR (MDRD) Non-Af 93, BUN/Creatinine Ratio 18.0, Glucose 99, Calcium 8.7, Triglycerides 75, Cholesterol 138, LDL Cholesterol 79, VLDL Cholesterol 15, HDL Cholesterol 44 Current Medications Aspirin (Ecotrin) 81 mg PO DAILY@0800 [facility] Atorvastatin Calcium (Lipitor) 80 mg PO QHS [facility] Last Admin: 05/26/20 15:19 Dose: 80 mg Documented by: Hydralazine HCl (Apresoline Iv) 5 mg IV Q30M PRN PRN Reason: to maintain BP goals Sodium Chloride () 250 mls @ 15 mls/hr IV .[id number] PRN PRN Reason: Saline Flush Sodium Chloride () 250 mls @ 15 mls/hr IV .[id number] PRN PRN Reason: Additional IVPB Infusion Labetalol HCl (Trandate) 10 - 20 mg IV Q10M PRN PRN PRN Reason: to Maintain BP Goals Sodium Chloride () 10 - 40 ml IV UD PRN PRN Reason: SALINE FLUSH Assessment/Plan This patient was seen in conjunction with Mario SOSA. I have independently interviewed and examined the patient and reviewed pertinent history, examination findings, laboratory and plan of management. I have reviewed the note and agree with the documented findings with the few additional points. In brief, patient is admitted for language deficit and dysarthria consistent with stroke. MRI brain showed subacute cortical ischemic infarct along left posterior insular cortex, the left superior temporal gyrus and the left supramarginal gyrus. In clinical context it seems iatrogenic after cardiac cath done on 02/23/2020 and the symptoms started about 3:30 PM yesterday afternoon. Patient is on baby aspirin, high-dose atorvastatin although initially he was reluctant to have aspirin because of proposed surgery for aortic aneurysm repair on coming Thursday. Stroke work-up was done. CTA head and neck negative. [facility] telemetry neurology consult was done. Recommended aspirin and statin. Neurologist does not recommend anticoagulation with IV heparin for other for fear of hemorrhagic conversion or enlargement of ischemic infarct. Marfan syndrome with history of surgery at age of 14, aortic arch surgery, aortic arch further repair and open heart surgery for mitral valve repair at age of 24 and then TAVR in November 2019. Was also told that he is developing abdominal aortic aneurysm. Cardiac cath done as a preop on 05/25/2020 did not show major coronary lesion. Transfer process was discussed with patient's [facility] senior ui software engineer and neurologist commercial litigation associate and patient ultimately accepted by [facility] senior ui software engineer team. I further talk to Dr. Perez, [facility] rn research and updated about clinical course. Hypertension: Pressure is controlled. I have discussed my assessment with Mario SOSA and orders have been reviewed.
--- NOTE | 2020-05-26 13:27 | TELEMED_ITS ---
[facility] Telemed has confirmed receipt of a request for visit. This document confirms receipt of the order initiating the consult. To find the results of the consultation, please view the patient's reports for the scanned Telemed Consult.
--- NOTE | 2020-05-26 14:17 | CASEMGMT ---
RN CM NOTE: RNClotilde, states pt is very overwhelmed right now and requests for RN CM not go in to see pt at this time for initial RN CM assessment. Chart review completed at this time to obtain the following information: PCP: Dr Norris Bah Specialists: [facility] custom protection officer Preferred Pharmacy: [facility] [place] Insurance: Self Pay Prescription Benefit: None Living Will/HPOA: No LW and has Healthcare POA, Julia Leavitt, per admission documentation clerk. Copy not on file @ [facility]: Mother, Julia Leavitt Pt has been independent in room. PT/OT evals have been ordered, but pt has refused both. PLAN: Anticipate pt will return home @ discharge. Pt scheduled to have Aortic Aneurysm repair @ [facility] on Thursday. ST eval has been ordered, but pt has refused for this to be completed. Pt w/expressive aphasia and anticipate pt will need OP ST. [place] YARBROUGHN RN CARLA BRIDGES RN CM
[2020-05-26] MEDS: Atorvastatin Calcium 80 MG Tablet PO (15:19)
[2020-05-26] MEDS: Aspirin E.C. 81 MG Tablet PO (15:19)
--- NOTE | 2020-05-26 16:25 | CON.PCM_ITS ---
Problem List (1) Expressive aphasia Status: Acute Reason for Consult Date of Consultation: 05/26/20 History of Present Illness: The patient is a 30 year old M [suffered expressive dysphasia after cardiac catheterization yesterday at [facility]. Patient is scheduled for abdominal aortic aneurysm repair next Thursday at the clinic. At age 14, patient had his first Marfan syndrome aortic arch surgery. At age 24, patient had further arch repair and open heart surgery for mitral valve repair. He did well and require TEVR November of this year. He was followed closely by the [facility] and has been told that the is further aneurysm developing in the abdominal aorta. He denies ever having any history of CVA or TIA. The cardiac catheterization did not show any significant coronary artery disease according to the patient and his . He has been treated for hypertension. He is a non-smoker and nondrinker. He smokes marijuana from time to time. MRI showed subacute cortical gyral ischemic infarct along the left posterior insular cortex, the left superior temporal gyrus and the left supramarginal gyrus. This is most likely cardioembolic in origin. CTA of the head and neck did not reveal any source of emboli] Past Medical History Allergies/Adverse Reactions: Allergies fentanyl Adverse Reaction (Verified 05/25/20 23:44) Other Home Medications: Ambulatory Orders Medication Instructions Recorded Amitriptyline HCl 12.5 mg PO QHS PRN 09/10/19 Lisinopril [Zestril] 10 mg PO DAILY 09/10/19 Past Medical History (Chronic Problems): Chronic Problems Pancytopenia (Chronic) Asthma (Chronic) Aortic dissection (Chronic) Marfan syndrome (Chronic) CKD (chronic kidney disease) stage 3, GFR 30-59 ml/min (Chronic) Anemia (Chronic) Surgical History: - - Repair of aortic dissection with a frozen elephant trunk at the [facility]. Patient had remote history of aortic valve repair without replacement. Psychiatric History: No pertinent psych hx - *Family History Paternal History Items: Stroke - There is unclear if this was a cerebral aneurysm or not., - - Marfan's disease. Father had been temporarily on hemodialysis. Smoking Status: Never smoker Tobacco Use: Non-smoker Alcohol: None Drugs: None Review of Systems - Review of Systems Cardiovascular: Denies: Chest Discomfort, Shortness of Breath, Orthopnea, PND, Peripheral Edema, Palpitations, Lightheadedness, Dizziness, Near Syncope, Syncope Respiratory: Denies: Cough, Sputum Production, Hemoptysis Gastrointestinal: Denies: Hematemesis, Hematochezia, Melena Neurological: Reports: - - Expressive dysphasia since yesterday Objective: Vital Signs Temp Pulse Resp BP Pulse Ox 98.6 F 65 15 129/63 H 96 05/26/20 15:00 05/26/20 15:00 05/26/20 15:00 05/26/20 15:00 05/26/20 15:03 Oxygen Delivery Method Room Air Weight: 291 lb 7.218 oz Body Mass Index (BMI) 35.4 Finger Stick Blood Glucose 102 Intake and Output for Last 24 Hours 05/24/20 05/25/20 05/26/20 23:59 23:59 23:59 Intake Total 1220 / 1220 Output Total 0 / 0 Balance 1220 / 1220 General: Healthy Appearing, Awake, Alert, Oriented x 3, Cooperative Neck: Supple Lungs: Clear to auscultation Cardiovascular: Regular Rhythm, Normal S1, Normal S2, No Murmurs, No Rubs, No Gallops Vascular: No Carotid Bruits Neurological: CN II-XII Intact, Slurred Speech Psych/Mental Status: Appropriate, Normal Affect, - - Treated with his expressive dysphasia 05/25/20 23:50: WBC 12.7 H, RBC 4.58 L, Hgb 12.3 L, Hct 38.4 L, MCV 83.8, MCH 26.9 L, MCHC 32.0, Plt Count 480 H, MPV 9.9, Immature Gran % (Auto) 0.400, Neut % (Auto) 60.1, Lymph % (Auto) 25.1, [place] % (Auto) 13.2 H, Eos % (Auto) 0.6, Baso % (Auto) 0.6, Absolute Neuts (auto) 7.6, Nucleated RBC % 0 05/25/20 23:50: PT 13.8, INR 1.1, APTT 33.5 05/25/20 23:50: Sodium 137, Potassium 3.6, Chloride 103, Carbon Dioxide 30.0, Anion Gap 4 L, BUN 21 H, Creatinine 1.22, Est GFR (MDRD) Af Amer 89, Est GFR (MDRD) Non-Af 74, BUN/Creatinine Ratio 17.2, Glucose 98, Calcium 9.1, Troponin I 0.033 05/26/20 06:51: WBC 12.4 H, RBC 4.23 L, Hgb 11.2 L, Hct 35.8 L, MCV 84.6, MCH 26.5 L, MCHC 31.3 L, Plt Count 424, MPV 9.9, Immature Gran % (Auto) 0.500, Neut % (Auto) 64.4, Lymph % (Auto) 22.3, [place] % (Auto) 11.7 H, Eos % (Auto) 0.5, Baso % (Auto) 0.6, Absolute Neuts (auto) 8.0 H, Nucleated RBC % 0 05/26/20 06:51: Sodium 136, Potassium 3.9, Chloride 105, Carbon Dioxide 27.0, Anion Gap 4 L, BUN 18, Creatinine 1.00, Est GFR (MDRD) Af Amer 112, Est GFR (MDRD) Non-Af 93, BUN/Creatinine Ratio 18.0, Glucose 99, Calcium 8.7, Triglycerides 75, Cholesterol 138, LDL Cholesterol 79, VLDL Cholesterol 15, HDL Cholesterol 44 Rhythm: EKG: ECHO: Stress Test: Cardiac Cath: PCI: CT Surgery: Holter monitor: EPS: PPM: CXR: Chest CT Scan: Assessment/Plan Cardioembolic CVA from cardiac catheterization done yesterday at the [facility]. Echocardiogram showed preserved left ventricular systolic wall motion. Aortic and mitral valve were normal. Ascending aortic root was normal. Whether we will use IV heparin is at the discretion of the neurological consultation. At this point patient has been put on aspirin daily. He is waiting to be transferred to [facility] for further evaluation.
--- NOTE | 2020-05-26 17:03 | NURSING ---
Report called to [facility] Hannah Fuchs patient aware of transfer consent signed
--- NOTE | 2020-05-26 17:21 | PCM.DC.SUM ---
<Paula Arias FINANCIAL PLANNING CONSULTANT - Last Filed: 05/26/20 17:42> Discharge Date and Diagnosis Date of Admission: 05/26/20 Date of Discharge: 05/26/20 - Primary Discharge Diagnosis Acute Problems: Active Problems 1. 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 Marfan syndrome complicated by history of aortic dissection status post repair and aortic valve repair-to undergo aortic aneurysm repair Thursday at [facility] 3. Hypertension 4. Depression/anxiety - Secondary Discharge Diagnosis Chronic Problems: Chronic Problems Pancytopenia (Chronic) Asthma (Chronic) Aortic dissection (Chronic) Marfan syndrome (Chronic) CKD (chronic kidney disease) stage 3, GFR 30-59 ml/min (Chronic) Anemia (Chronic) Hospital Course and Treatment Imaging Results: Diagnostic Data Brain CT 05/25/20 23:54 IMPRESSION: Normal unenhanced CT scan of the brain. N.B. : The above information has been verbally conveyed by Jazmyn Pedroza to Janusz Bond MD, on 05/26/2020 00:14:14 (ET). Electronically Signed: Jazmyn Pedroza, at 0:10 EDT Tel , Service support , Head/Neck CTA 05/25/20 23:55 IMPRESSION: Normal CTA Head and neck with contrast. N.B. : The above information has been verbally conveyed by Jazmyn Pedroza to Dr. Janusz Bond MD, on 05/26/2020 00:37:10 (ET). Electronically Signed: Jazmyn Pedroza, at 0:41 EDT Tel , Service support , ADDENDUM: 05/26/20 0048 IMPRESSION: Normal CTA Head and neck with contrast. N.B. : The above information has been verbally conveyed by Jazmyn Pedroza to Dr. Janusz Bond MD, on 05/26/2020 00:37:10 (ET). Electronically Signed: Jazmyn Pedroza at 0:41 EDT Tel , Service support , Chest X-Ray 05/26/20 00:30 IMPRESSION: No demonstrated acute cardiopulmonary process. Electronically Signed: Jazmyn Pedroza, at 1:59 EDT Tel , Service support , Brain MRI 05/26/20 02:37 IMPRESSION: Subacute cortical gyral ischemic infarct along the left posterior insular cortex, the left superior temporal gyrus and the left supramarginal gyrus. This is most likely cardioembolic since the CTA of head and neck did not reveal any source of embolus. Electronically Signed: Sameer Celis MD at 12:34 EDT , Service support , ADDENDUM: 05/26/20 1248 IMPRESSION: Subacute cortical gyral ischemic infarct along the left posterior insular cortex, the left superior temporal gyrus and the left supramarginal gyrus. This is most likely cardioembolic since the CTA of head and neck did not reveal any source of embolus. N.B. : The above information has been verbally conveyed by Sameer Celis MD to Ksenia Causey RN, on 05/26/2020 12:41:17 (ET). Electronically Signed: Sameer Celis MD at 12:34 EDT , Service support , Dr. Zuluaga- Cardiology SOC neurology Operations: None Procedures: 2-D Echocardiogram Summary of Care Provided: The patient is a 30 year old M admitted 05/26/2020 due to expressive aphasia. 1. 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 Most likely cardioembolic source. CTA of head and neck unremarkable. Echo with EF 60%. Transferred to [facility] for further management and evaluation given #2. 2. Marfan syndrome complicated by history of aortic dissection status post repair and aortic valve repair-to undergo aortic aneurysm repair Thursday at [facility] 3. Hypertension-stable, continue lisinopril regimen. 4. Depression/anxiety-continue amitriptyline. General: Alert, Oriented x3, Cooperative HEENT: Atraumatic, PERRLA, EOMI, Normocephalic Neck: Supple, No JVD, Negative Carotid Bruits Lungs: Clear to auscultation, Normal air movement Cardiovascular: Regular rate, Regular Rhythm, Murmur Abdomen: Bowel Sounds Present, Soft, Non Tender, Non-Distended Extremities: No clubbing, No cyanosis, No edema, Capillary Refill Less than 3 Seconds Skin: No rashes, No breakdown Musculoskeletal: No Tenderness to Palpation of Joints or Extremities Neurological: Cranial nerves II-XII grossly intact, Neuro grossly intact, - - Difficulty finding words, otherwise neuro grossly intact Psych/Mental Status: Normal Affect, Appropriate Patient seen and examined prior to discharge. Physical assessment as noted above. Patient is stable for discharge with follow up recommendations as noted above. This patient was seen by CAMILLA Vigil under the supervision of Dr. Elise. - Physical Exam Vitals/I&O's: Vital Signs Temp Pulse Resp BP Pulse Ox 98.7 F 72 15 116/69 97 05/26/20 17:12 05/26/20 17:12 05/26/20 17:12 05/26/20 17:12 05/26/20 17:12 Oxygen Delivery Method Room Air Weight: 291 lb 7.218 oz Body Mass Index (BMI) 35.4 Finger Stick Blood Glucose 102 Intake and Output for Last 24 Hours 05/24/20 05/25/20 05/26/20 23:59 23:59 23:59 Intake Total 1220 / 1220 Output Total 0 / 0 Balance 1220 / 1220 Laboratory Results 05/25/20 23:50: WBC 12.7 H, RBC 4.58 L, Hgb 12.3 L, Hct 38.4 L, MCV 83.8, MCH 26.9 L, MCHC 32.0, RDW Std Deviation 43.2, RDW Coeff of Jacinta 14.5, Plt Count 480 H, MPV 9.9, Immature Gran % (Auto) 0.400, Neut % (Auto) 60.1, Lymph % (Auto) 25.1, [place] % (Auto) 13.2 H, Eos % (Auto) 0.6, Baso % (Auto) 0.6, Absolute Neuts (auto) 7.6, Absolute Lymphs (auto) 3.18, Nucleated RBC % 0, Differential Comment SCANNED, Diff Path Review December05/25/20 23:50: PT 13.8, INR 1.1, APTT 33.5 05/25/20 23:50: Sodium 137, Potassium 3.6, Chloride 103, Carbon Dioxide 30.0, Anion Gap 4 L, BUN 21 H, Creatinine 1.22, Estim Creat Clear Calc 107.71, Est GFR (MDRD) Af Amer 89, Est GFR (MDRD) Non-Af 74, BUN/Creatinine Ratio 17.2, Glucose 98, Calcium 9.1, Troponin I 0.033 05/26/20 00:13: POC Glucose 102 05/26/20 06:51: WBC 12.4 H, RBC 4.23 L, Hgb 11.2 L, Hct 35.8 L, MCV 84.6, MCH 26.5 L, MCHC 31.3 L, RDW Std Deviation 43.9, RDW Coeff of Jacinta 14.5, Plt Count 424, MPV 9.9, Immature Gran % (Auto) 0.500, Neut % (Auto) 64.4, Lymph % (Auto) 22.3, [place] % (Auto) 11.7 H, Eos % (Auto) 0.5, Baso % (Auto) 0.6, Absolute Neuts (auto) 8.0 H, Absolute Lymphs (auto) 2.77, Nucleated RBC % 0 05/26/20 06:51: Sodium 136, Potassium 3.9, Chloride 105, Carbon Dioxide 27.0, Anion Gap 4 L, BUN 18, Creatinine 1.00, Estim Creat Clear Calc 131.41, Est GFR (MDRD) Af Amer 112, Est GFR (MDRD) Non-Af 93, BUN/Creatinine Ratio 18.0, Glucose 99, Calcium 8.7, Triglycerides 75, Cholesterol 138, LDL Cholesterol 79, VLDL Cholesterol 15, HDL Cholesterol 44 Current Medications Aspirin (Ecotrin) 81 mg PO DAILY@0800 [facility] Atorvastatin Calcium (Lipitor) 80 mg PO QHS [facility] Last Admin: 05/26/20 15:19 Dose: 80 mg Documented by: Hydralazine HCl (Apresoline Iv) 5 mg IV Q30M PRN PRN Reason: to maintain BP goals Sodium Chloride () 250 mls @ 15 mls/hr IV .[id number] PRN PRN Reason: Saline Flush Sodium Chloride () 250 mls @ 15 mls/hr IV .[id number] PRN PRN Reason: Additional IVPB Infusion Labetalol HCl (Trandate) 10 - 20 mg IV Q10M PRN PRN PRN Reason: to Maintain BP Goals Sodium Chloride () 10 - 40 ml IV UD PRN PRN Reason: SALINE FLUSH Home Medications: Medications to take at Discharge Amitriptyline HCl 12.5 mg PO QHS PRN 09/10/19 Lisinopril [Zestril] 10 mg PO DAILY 09/10/19 Primary Care Physician: Olivier Bah III, MD [Primary Care Provider] - Disposition: Acute care Hospital Minutes spent on discharge:: 35 Patient Condition:: Stable Medical Necessity - Tobacco Use Smoking Status: Never smoker Tobacco Use: Non-smoker Meaningful Use Info Meaningful Use Diagnoses (Choose all that apply): Ischemic CVA - CVA Therapy Assessed for PT,OT and/or ST?: Yes - Ischemic Stroke Antithrombotic order at d/c?: Yes Dx of Atrial fib/flutter?: No Statins at discharge?: Yes Primary Dx Acute Ischemic CVA?: Yes IV tPA ordered during stay?: No Reason IV t-PA not ordered: Medical Contraindication <Oni Elise - Last Filed: 05/27/20 12:22> Discharge Date and Diagnosis - Secondary Discharge Diagnosis Chronic Problems: Chronic Problems Pancytopenia (Chronic) Asthma (Chronic) Aortic dissection (Chronic) Marfan syndrome (Chronic) CKD (chronic kidney disease) stage 3, GFR 30-59 ml/min (Chronic) Anemia (Chronic) Hospital Course and Treatment Summary of Care Provided: This patient was seen in conjunction with FINANCIAL PLANNING CONSULTANTPaula. I have independently interviewed and examined the patient and reviewed pertinent history, examination findings, laboratory and plan of management. I have reviewed the note and agree with the documented findings with the few additional points. In brief, patient is admitted for language deficit and dysarthria consistent with stroke. MRI brain showed subacute cortical ischemic infarct along left posterior insular cortex, the left superior temporal gyrus and the left supramarginal gyrus. In clinical context it seems iatrogenic after cardiac cath done on 02/23/2020 and the symptoms started about 3:30 PM yesterday afternoon. Patient is on baby aspirin, high-dose atorvastatin although initially he was reluctant to have aspirin because of proposed surgery for aortic aneurysm repair on coming Thursday. Stroke work-up was done. CTA head and neck negative. SOC telemetry neurology consult was done. Recommended aspirin and statin. Neurologist does not recommend anticoagulation with IV heparin for fear of hemorrhagic conversion or enlargement of ischemic infarct. Marfan syndrome with history of surgery at age of 14, aortic arch surgery, aortic arch further repair and open heart surgery for mitral valve repair at age of 24 and then TAVR in November 2019. Was also told that he is developing abdominal aortic aneurysm. Cardiac cath done as a preop on 05/25/2020 did not show major coronary lesion. Transfer process was discussed with patient's [facility] sale professional digital marketing, Dr Rodriguez and neurologist congregational care pastor, Dr Mayo and patient ultimately accepted by [facility] sale professional digital marketing team. Later on, Dr. Perez, [facility] assurance associate called me to get the hospital clinical course and I explained. Hypertension: Pressure is controlled. I have discussed my assessment with FINANCIAL PLANNING CONSULTANT, Paula and orders have been reviewed. [] The patient is being transferred to [facility] under the care of cardiology team. Total time spent, exact 35 minutes on examination, coordination of care with nurses and ancillary staff, [facility] transfer machine operator, physicians in [facility] for exchange of hospital clinical course, sale professional digital marketing, Dr. Zuluaga, SOC neurologist and review of imaging and blood test and discussion with the patient on follow-up instructions Objective: Patient was seen and examined multiple times on the day of discharge. Please see progress note of the same date for details evaluation. - Physical Exam Vitals/I&O's: Vital Signs Temp Pulse Resp BP Pulse Ox 98.7 F 72 15 116/69 97 05/26/20 17:12 05/26/20 17:12 05/26/20 17:12 05/26/20 17:12 05/26/20 17:12 Oxygen Delivery Method Room Air Weight: 291 lb 7.218 oz Body Mass Index (BMI) 35.4 Finger Stick Blood Glucose 102 Intake and Output for Last 24 Hours 05/25/20 05/26/20 05/27/20 23:59 23:59 23:59 Intake Total 1220 / 1220 Output Total 0 / 0 Balance 1220 / 1220 Inpatient E&M: 31512 Disch Hosp
[2020-05-28 14:12] LABS: Pathologist Review Reviewed
--- NOTE | 2020-05-28 14:56 | CASEMGMT ---
[facility] PHONE CALL DC DATE: 05/26/2020 DC Disposition: Home Diagnosis on Discharge: Stroke LACE/STRATA: 06/02 Call deferred. Patient does not have a phone. Martinez METCALF BSN ACM
== END 2020-05-26 15:38 | disposition short-term general hospital (02) | DRG 64 ==
LOC: ED 05-26 01:41 → PCU 05-26 02:18
PROVIDERS: Admitting Provider Family Medicine; Emergency Provider Emergency Medicine; PCP Family Medicine; Referring Provider Family Medicine; Visit Provider Internal Medicine
DX: I63.49 Cerebral infarction due to embolism of other cerebral artery (principal); I71.00 Dissection of unspecified site of aorta; D61.818 Other pancytopenia; Q87.40 Marfan syndrome, unspecified; R29.702 NIHSS score 2; R47.02 Dysphasia; R47.01 Aphasia; J45.909 Unspecified asthma, uncomplicated; I12.9 Hypertensive chronic kidney disease with stage 1 through stage 4 chronic kidney disease, or unspecified chronic kidney disease; N18.3 Chronic kidney disease, stage 3 (moderate); F32.9 Major depressive disorder, single episode, unspecified; F41.9 Anxiety disorder, unspecified; I71.2 Thoracic aortic aneurysm, without rupture; I71.4 Abdominal aortic aneurysm, without rupture; Z95.2 Presence of prosthetic heart valve; F12.90 Cannabis use, unspecified, uncomplicated; Z79.82 Long term (current) use of aspirin; Z79.899 Other long term (current) drug therapy
CPT/HCPCS: 36415; 70450; 70496; 70498; 70551; 71045; 80048; 80061; 82962; 84484; 85025; 85610; 85730; 93005; 93306; 94762; 99285; J7030; Q9957; Q9967; A4216; C8929

== ENCOUNTER 2020-09-09 15:51 | Emergency (ER) | payer SELFPAY ==
[2020-05-26 16:32] VITALS: BMI 35.4
[2020-09-09 15:52] VITALS: BP 137/77; PULSE 73; RESP 16; TEMP 36.4; O2SAT 96; BMI 32.9
--- NOTE | 2020-09-09 16:06 | CT_ITS ---
STUDY: CT ABDOMEN AND PELVIS WITH CONTRAST REASON FOR EXAM: Male, 30 years old. Left abdomen inscision redness, 1 month post-op aortic aneurysm repair/stenting, Marfan syndrome, mulitple aortic surgeries for stenting of aneurysms and dissection, splenectomy, hypertension. RADIATION DOSAGE (If Supplied By Facility): CTDIvol = ( 21.88 ) mGy, DLP = ( 1336.41 ) mGycm TECHNIQUE: Transaxial images were obtained from the dome of the diaphragm to the symphysis pubis without oral contrast. 100mL Isovue 370 was administered. Sagittal and coronal images were reconstructed. Individualized dose optimization techniques were used for this CT. COMPARISON: CTA abdomen/ FINDINGS: The visualized lung bases are unremarkable. The visualized portions of the heart are within normal limits. Normal liver. Normal gallbladder and extrahepatic biliary system. The spleen is surgically absent. Normal pancreas. Normal bilateral adrenal glands. Normal right kidney. Normal left kidney. Normal visualized stomach. Normal small intestine. Normal colon. There is non-visualization of the appendix. Aortic stent graft of the lower thoracic aorta is redemonstrated. There has been interval surgery of the abdominal aorta which is severely angulated towards the left. Right renal artery is grossly patent. Left renal artery is patent. Surrounding the abdominal aorta, there is a fluid collection measuring 10.5 x 13.1 cm with adjacent mild stranding. There are small locules of air within the fluid collection on image 77 of series 2. No contrast extravasation. There is also a lobular fluid collection of the left anterior abdominal wall measuring 3.8 x 9.7 cm on image 53 of series 2 with soft tissue induration extending to the overlying skin, which is mildly thickened. 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 Normal inferior vena cava. Normal retroperitoneum. Normal urinary bladder. There is a small umbilical hernia containing fat. Normal osseous structures. CT/Abdomen/Pelvis W IV Cont ONLY IMPRESSION: 1. 10.5 x 13.1 cm periaortic fluid collection with small locules of air in adjacent stranding suggesting possibility of perigraft abscess although could also represent postoperative seroma/hematoma. 2. 3.8 x 9.7 cm left anterior abdominal wall fluid collection with adjacent soft tissue swelling and skin thickening worrisome for abscess. 3. Interval abdominal aortic graft placement. Stable left common iliac artery chronic dissection. 4. Stable appearance of the lower thoracic aorta Electronically Signed: Suman Arnold MD (Brooks) at 17:19 EST , Service support ,
[2020-09-09 16:07] VITALS: BP 137/77; PULSE 73; RESP 16; TEMP 36.4; O2SAT 96
--- NOTE | 2020-09-09 16:07 | ED.VISSUMM ---
- ER Visit Summary Date of Service: 09/09/20 Chief Complaint: Possible wound infection History of Present Illness: The patient is a 30 M who presents for wound check. Patient had a recent repair of abdominal aneurysm on 08/10/2020. Patient states his incision has been healing well until 3 days ago. Patient noted some swelling over the midportion of the incision. Patient denies any fevers or chills. Patient denies any nausea or vomiting. Patient states nothing makes it better or worse. Patient has a history of Marfan syndrome and has had multiple repairs of his aortic aneurysms. Patient states that he has had a prior infection in a chest wound after surgery. Patient is concerned over possible wound infection today. Physical Examination: Vital signs are stable. Patient is afebrile. Patient is in no acute distress. Oral mucosa is pink and moist. Neck is supple. Trachea is midline. There is no JVD. Heart was regular rate and rhythm. Lungs are clear and equal bilaterally. Abdomen is soft. Bowel sounds are normal. There is no tenderness. Incision is healing well. There is an area in the midportion of the incision that is edematous and fluctuant. There is no surrounding erythema. There is no active discharge or drainage. Cranial nerves II through XII are intact. There are no focal motor or sensory deficits noted. Test Results: CBC shows a mild leukocytosis of 12.2. Hemoglobin and hematocrit are stable. Comprehensive metabolic profile was essentially within normal limits. CT scan of the abdomen pelvis was obtained. There is a 10.5 x 13.1 cm fluid collection around the aorta with mild adjacent stranding. There are small locules of air within the fluid. There is no extravasation of contrast. There is also a fluid collection in the anterior abdominal wall measuring 3.8 x 9.7 cm. There is a chronic dissection of the left iliac artery that is stable and unchanged. This was interpreted by the radiologist and reviewed by myself. Emergency Department Course and Treatment: Blood cultures were obtained. Patient was started on Zosyn and vancomycin. Case was discussed with [facility] cardiothoracic surgery. Patient will be transferred there. Patient understands and is agreeable with the plan. All questions were answered. Disposition: Transfer to [facility] Impression: Abdominal abscess This note was generated with [employer] dictation software. It may contain incorrect words, spelling, and punctuation that were not noted in review of the chart prior to signing ED Disposition - Plan for ED Patient: Disposition: [facility] - Main Diagnosis: Intra-abdominal abscess post-procedure, Abdominal wall abscess at site of surgical wound Referrals: Olivier Bah III, MD [Primary Care Provider] -
[2020-09-09] MEDS: 0.9% Normal Saline 1,000 ML 1000 ML IV (16:30)
[2020-09-09 16:35] LABS: Absolute Lymphocyte Count 1.45 X10^3/uL (0.83-4.51); Absolute Neutrophil Count 8.2 X10^3/uL (2.0-7.7); Basophil# 0.13 X10^3/uL; Basophil% 1.1 % (0-1); Eosinophil# 0.48 X10^3/uL; Eosinophils% 3.9 % (0-5); Hematocrit 35.5 % (40-54); Hemoglobin 11.1 g/dL (13.0-16.5); Lymphocyte # 1.45 X10^3/ul (4.0); Lymphocyte % 11.9 % (19-41); Mean Corp Hgb Conc 31.3 g/dL (32-36); Mean Corpuscular Hgb 27.6 pg (27.0-32.0); Mean Corpuscular Volume 88.3 fL (80-94); Mean Platelet Vol. 9.3 fl (6.2-12.0); Monocyte# 1.85 X10^3/uL; Monocyte% 15.2 % (0-10); NRBC Flagged by Analyzer 0 % (0-5); Neutrophil # 8.21 X10^3/uL (2.7-7.7); Neutrophil % 67.5 % (47-70); POSITIVE DIFFERENTIAL YES; Platelet Count 490 K/mm3 (150-450); RBC Distribution Width CV 13.5 % (11.6-14.6); Red Blood Count 4.02 M/mm3 (4.6-6.2); White Blood Count 12.2 K/mm3 (4.4-11.0)
[2020-09-09 16:37] LABS: Differential Indicated SCAN CRITERIA MET
[2020-09-09 16:48] LABS: ALB/GLOB Ratio 0.8 RATIO (0.9-2.4); AST(SGOT) 23 U/L (15-37); Alanine Aminotransfer ALT/SGPT 23 U/L (16-61); Albumin, Serum 3.6 g/dL (3.2-5.0); Alkaline Phosphatase 91 U/L (45-117); Anion Gap 4 (5-15); BUN 11 mg/dL (7-18); BUN/Creat Ratio 10.8 RATIO (10-20); Calcium,Total 9.4 mg/dL (8.5-10.1); Chloride 103 mmol/L (98-107); Creatinine, Serum 1.02 mg/dL (0.70-1.30); EST Glomerular Filtration Rate 90 mL/min (>60); Est Glom Filt Rate - Afr Amer 109 mL/min (>60); Estimated Creatinine Clearance 128.83 ml/min; Globulin 4.7 g/dL (2.2-4.2); Glucose 116 mg/dL (74-106); Lipase 124 U/L (73-393); Potassium 3.6 mmol/L (3.5-5.1); Protein, Total 8.3 g/dL (6.4-8.2); Sodium Level 138 mmol/L (136-145)
[2020-09-09 17:50] LABS: Differential Comment SCANNED
[2020-09-09 17:51] LABS: Acanthocytes RARE; Platelet Estimate SLT INC (ADEQ); Schistocytes 1+
[2020-09-09 19:15] VITALS: BP 128/68; PULSE 70; RESP 18; TEMP 36.4; O2SAT 97
[2020-09-09 19:16] VITALS: BP 128/68
--- NOTE | 2020-09-09 20:08 | NURSING ---
ACCEPTED TO [facility] BY DR. MCPHERSON [phone] REPORT [id number] BED 12
[2020-09-09 21:03] VITALS: BP 128/68; PULSE 70; RESP 18; TEMP 36.4; O2SAT 97
[2020-09-10 13:23] LABS: Pathologist Review Reviewed
== END 2020-09-09 21:11 | disposition short-term general hospital (02) ==
PROVIDERS: Emergency Provider Emergency Medicine; PCP Family Medicine
DX: T81.43XA Infection following a procedure, organ and space surgical site, initial encounter (principal); Q87.40 Marfan syndrome, unspecified; Z90.81 Acquired absence of spleen; I10 Essential (primary) hypertension; Z79.899 Other long term (current) drug therapy
CPT/HCPCS: 74177; 80053; 83690; 85025; 87040; 96361; 96365; 96366; 96367; 99285; J7030; J7040; J7050; Q9967; A4216

== ENCOUNTER 2022-04-29 22:26 | Emergency (ER) | payer SELFPAY ==
[2022-04-29 22:27] VITALS: BP 174/83; PULSE 87; RESP 17; TEMP 36.8; O2SAT 99; BMI 35.5
[2022-04-30 00:05] LABS: Absolute Lymphocyte Count 2.18 X10^3/uL (0.83-4.51); Absolute Neutrophil Count 10.1 X10^3/uL (2.0-7.7); Basophil# 0.12 X10^3/uL; Basophil% 0.9 % (0-1); Eosinophil# 0.07 X10^3/uL; Eosinophils% 0.5 % (0-5); Hematocrit 39.6 % (40-54); Hemoglobin 12.8 g/dL (13.0-16.5); Lymphocyte # 2.18 X10^3/ul (0.83-4.51); Lymphocyte % 15.6 % (19-41); Mean Corp Hgb Conc 32.3 g/dL (32-36); Mean Corpuscular Volume 86.7 fL (80-94); Mean Platelet Vol. 9.8 fl (6.2-12.0); Monocyte# 1.48 X10^3/uL; Monocyte% 10.6 % (0-10); NRBC Flagged by Analyzer 0 % (0-5); Neutrophil # 10.07 X10^3/uL (2.7-7.7); Neutrophil % 71.9 % (47-70); Platelet Count 461 K/mm3 (150-450); RBC Distribution Width CV 14.1 % (11.6-14.6); RBC Distribution Width SD 44.5 fl (35.1-43.9); Red Blood Count 4.57 M/mm3 (4.6-6.2)
[2022-04-30] MEDS: Lidocaine Jelly 2% 20 ML Syringe (URO-JET) 1 APPLIC TOPICAL (00:12)
[2022-04-30 00:15] LABS: International Normalized Ratio 1.1; Partial Thromboplast Time 30.7 Seconds (24.1-36.2); Prothrombin Time (Protime)PT. 13.8 SECONDS (11.7-14.9)
[2022-04-30 00:41] LABS: Anion Gap 4 (5-15); BUN 17 mg/dL (7-18); BUN/Creat Ratio 14.8 RATIO (10-20); Calcium,Total 8.9 mg/dL (8.5-10.1); Chloride 107 mmol/L (98-107); Creatinine, Serum 1.15 mg/dL (0.70-1.30); EST Glomerular Filtration Rate 78 mL/min (>60); Est Glom Filt Rate - Afr Amer 94 mL/min (>60); Estimated Creatinine Clearance 115.14 ml/min; Glucose 117 mg/dL (74-106); Potassium 4.1 mmol/L (3.5-5.1); Sodium Level 140 mmol/L (136-145)
[2022-04-30 01:07] VITALS: BP 186/70; PULSE 66; RESP 16; O2SAT 97
--- NOTE | 2022-04-30 01:17 | EX.ED.DYSGE1 ---
HPI History of Present Illness Chief Complaint: Complaint Narrative Narrative: Patient is a 32-year-old male with past medical history of Marfan syndrome leading to aortic dissection requiring grafting. He states that he struggles with constipation and this evening gave himself a enema. He states following this he began to urinate and noticed that there was bright red blood. He states that he is not on a blood thinner. He denies any genital trauma such as urethral sounding. He states that there is been no concern for an STD and he has had no urinary symptoms prior to the blood beginning. Patient also denies any back pain or history of kidney stones PFSH PFS Home Medications metoprolol tartrate 25 mg tablet 25 mg PO DAILY 09/09/20 [History Last Taken Unknown] Allergy/AdvReac Type Severity Reaction Status Date / Time fentanyl AdvReac Other Verified 04/29/22 22:30 Surgical History (Updated 04/29/22 @ 23:59 by Hema Purcell) H/O splenectomy Social History Smoking Status: Never smoker [facility] ED Constitutional Constitutional ED: Denies chills or fever(s) ENT ENT ED: Denies sore throat Cardiovascular Cardiovascular: Denies chest pain Respiratory/Chest Respiratory/Chest: Denies cough or dyspnea Gastrointestinal Gastrointestinal: Denies abdominal pain, diarrhea, nausea or vomiting Genitourinary Genitourinary ED: Reports hematuria; Denies dysuria Musculoskeletal Musculoskeletal: Denies back pain or myalgias Integumentary Denies rash Neurologic Neurologic: Denies headache(s) Hematologic/Lymphatic Hematologic/Lymphatic: Denies easy bleeding or easy bruising EXAM Physical Exam Const Vital Signs: 04/29/22 22:27 04/30/22 01:07 04/30/22 01:28 Temperature 98.2 F Temperature Source Temporal Pulse Rate 87 66 74 Respiratory Rate 17 16 18 Blood Pressure 174/83 H 186/70 H 139/78 H Blood Pressure Mean 113 108 Pulse Ox 99 97 97 Oxygen Delivery Method Room Air Room Air Positive well nourished, well developed and obese General Appearance ED: well developed Nutritional Appearance: obese Eyes EOMs intact bilaterally Eyes Narrative: Patient has a cataract of the right eye which is chronic in nature otherwise eye exam is normal Neck supple Resp normal respiratory effort and clear to auscultation bilaterally Cardio regular rate and regular rhythm Rate: other Other Details: Radial pulses are plus 2 out of 4 bilaterally are equal and symmetric GI normal to inspection, nondistended, normoactive bowel sounds, non-tender and non-distended GI Narrative: No voluntary guarding or rigidity no pulsatile mass Auscultation: normoactive bowel sounds Palpation: soft Narrative: Normal circumcised male. There is dark blood at the urethral meatus without discharge present. No testicular masses or swelling. No hernia palpated. No overlying skin changes to suggest Aan's gangrene. Back/Spine no CVA tenderness Extremity normal to inspection Neuro oriented x3 and CN's II-XII intact bilaterally Sensorium / Orientation: alert Psych mental status grossly normal Skin no rashes or lesions noted MDM MDM MDM Narrative Medical decision making narrative: Patient presented to the ER mildly hypertensive but otherwise with stable vitals. He had no flank pain to suggest kidney stone and no report of urogenital trauma. With his report of using a rectal suppository prior to the hematuria beginning I do feel patient may have caused damage to some prostatic vessels. He denies any blood thinner use but with the bright red blood per urethra I did elect to check basic lab. Patient's H&H is stable his kidney function is normal and his bleeding times are also normal. A Maloney catheter was placed as he denied any trauma prior to the hematuria and with irrigation urine became perfectly clear and there was no further blood. Therefore this time I do believe patient ruptured her prostatic vessel it is now clotted off and irrigation has removed the remainder blood. As he is not anemic or having acute kidney injury there is no need for further work-up and he is otherwise safe for discharge Lab Data Attestation: I reviewed the patient's lab results. Labs: Laboratory Results - last 24 hr 04/29/22 04/29/22 04/29/22 23:55 23:55 23:55 WBC 14.0 H RBC 4.57 L Hgb 12.8 L Hct 39.6 L MCV 86.7 MCH 28.0 MCHC 32.3 RDW Std Deviation 44.5 H RDW Coeff of Jacinta 14.1 Plt Count 461 H MPV 9.8 Immature Gran % (Auto) 0.500 Neut % (Auto) 71.9 H Lymph % (Auto) 15.6 L [place] % (Auto) 10.6 H Eos % (Auto) 0.5 Baso % (Auto) 0.9 Absolute Neuts (auto) 10.1 H Absolute Lymphs (auto) 2.18 Nucleated RBC % 0 PT 13.8 INR 1.1 APTT 30.7 Sodium 140 Potassium 4.1 Chloride 107 Carbon Dioxide 29.0 Anion Gap 4 L BUN 17 Creatinine 1.15 Estim Creat Clear Calc 115.14 Est GFR (MDRD) Af Amer 94 Est GFR (MDRD) Non-Af 78 BUN/Creatinine Ratio 14.8 Glucose 117 H Calcium 8.9 Discharge Plan Triage Chief Complaint: Complaint ED Provider: Isidoro David Dx/Rx/DC Orders Clinical Impression: Hematuria, Marfan syndrome Instructions: ED Hematuria Prescriptions: No Action metoprolol tartrate 25 MG tablet 25 mg PO DAILY Primary Care Provider: Care Physician,No Primary Referrals: Domingo Garland MD [Med Staff - Active Staff] - 1 Week if not improving Care Physician,No Primary [Primary Care Provider] - Activity Restrictions/Additional Instructions: Please follow-up with urology for repeat evaluation and if you have a small amount of blood with urination or passage of clots this is no significant issue but if yadira bleeding returns please represent for repeat evaluation Disposition Disposition: Home, Self Care Discharge Date/Time: 04/30/22 01:30
[2022-04-30 01:28] VITALS: BP 139/78; PULSE 74; RESP 18; O2SAT 97
== END 2022-04-30 01:30 | disposition home or self-care (01) ==
PROVIDERS: Emergency Provider Emergency Medicine; Visit Provider Emergency Medicine
DX: R31.9 Hematuria, unspecified (principal); Q87.40 Marfan syndrome, unspecified; K59.00 Constipation, unspecified; E66.9 Obesity, unspecified; Z68.35 Body mass index [BMI] 35.0-35.9, adult; Z90.81 Acquired absence of spleen; H26.9 Unspecified cataract
CPT/HCPCS: 51702; 80048; 85025; 85610; 85730; 99283

== ENCOUNTER 2024-10-25 07:09 | Emergency (ER) | payer SELFPAY ==
[2024-10-25 07:10] VITALS: BP 155/106; BP 161/110; PULSE 84; PULSE 87; RESP 14; RESP 16; TEMP 36.7; O2SAT 94; BMI 35.0
--- NOTE | 2024-10-25 07:29 | VDLE_ITS ---
Reason For Study Reason For Study: BLE Swelling RIGHT LEFT GSV is normal. GSV is normal. CFV is compressible, spontaneous, competent and CFV is compressible, spontaneous, competent, and demonstrates pulsatile venous flow. demonstrates pulsatile venous flow. FV is compressible, spontaneous, competent and FV is compressible, spontaneous, competent and demonstrates pulsatile venous flow. demonstrates pulsatile venous flow. POP V is compressible, spontaneous, competent and POP V is compressible, spontaneous, competent and demonstrates pulsatile venous flow. demonstrates pulsatile venous flow. T/P Trunk is compressible. T/P Trunk is compressible. PTV is compressible. PTV is compressible. RT PerV is compressible. LT PerV is compressible. Procedure This is a venous duplex using B-mode, color flow and spectral Doppler. Exam performed portable in ED. The exam was diagnostic. A preliminary report was called and/or faxed to Dr. Rai. VL/Venous Duplex US - Juan Extrem Interpretation Summary Deep veins of the lower extremities are bilaterally patent and compressible seg mentally. There is no evidence of deep vein thrombosis on either side. Valvular competence appears intact within the p roximal deep venous systems bilaterally. The great saphenous veins appear bilaterally patent and compressible segmentall y. Pulsatile flow is noted in the deep venous system bilaterally, which may be indicative of elevated central venous p ressure (i.e. congestive heart failure, pulmonary hypertension, etc.). Clinical correlation is advised. Ordering Physician: Sameer Rai Referring Physician: N/A Performed By: Ray Zamudio RVT
--- NOTE | 2024-10-25 07:30 | EX.ED.DYSGE1 ---
HPI History of Present Illness Chief Complaint: Cough Narrative Narrative: 34-year-old male past medical history of Marfan syndrome and aortic dissection according to his problem list, presents with multiple somatic complaints, but mainly a cough that has had for at least a month. He works with special needs clients, and states about a month ago client had a common cold, no strep throat, no other symptoms. Since then, he has a cough especially when he lays back. He does not take any medications that produce cough. Sometimes he will cough up phlegm. He does not necessarily feel short of breath but can hear rattling in his chest especially when he lays back and goes to sleep at night. No recent fevers or chills, no nausea or vomiting. Additionally, he states that he has remote history of DVT after he had open heart surgery, but was not on blood thinners for an extended period of time. He notes that it was only in his chart that he had a DVT. He has noticed left foot redness and swelling over the last week. He does have pain sometimes when he stands. His significant other thought that maybe his right foot was more swollen as well. He has noticed that the left foot was swollen more than the right. He has been trying to see his primary care provider but states that they keep canceling his appointment. [facility] Home Medications ?Medication ?Instructions ?Recorded ?Last Taken ?Type metoprolol tartrate 25 mg tablet 25 mg PO DAILY 09/09/20 Unknown History albuterol sulfate 90 mcg/actuation 1 - 2 puff inhalation Q4H PRN PRN 10/25/24 Unknown Rx aerosol inhaler (Ventolin HFA) Wheezing #1 ea levofloxacin 750 mg tablet 750 mg PO DAILY #7 tabs 10/25/24 Unknown Rx Allergy/AdvReac Type Severity Reaction Status Date / Time fentanyl AdvReac Other Verified 10/25/24 07:10 Surgical History H/O splenectomy Social History Smoking Status: Never smoker ROS ROS ED ROS Narrative Constitutional: No fever, no chills. HEENT: No sore throat. No neck pain. No loss of vision. No rhinorrhea. Cardiovascular: No chest pain. No palpitations. Positive pedal edema, left foot swollen. Significant other thought right foot was swollen as well.. Respiratory: 1 month of cough, occasionally productive, no shortness of breath. Abdominal: No abdominal pain. No nausea. No vomiting. Musculoskeletal: No myalgias. Left foot pain and swelling. Neurologic: No headaches. No dizziness. No lightheadedness. Skin: Positive redness to dorsum of left foot. Mainly at base of fourth and fifth digits. EXAM Physical Exam Narrative Exam Narrative: Afebrile. Vital signs noted. Nontoxic-appearing. Cardiovascular examination reveals a regular rate and rhythm. Lungs are clear to auscultation bilaterally. No wheezing or stridor. Moving a good amount of air. Speaks in full sentences. Abdomen soft nontender. No noted calf pain, left, no inner thigh pain. Erythema. No palpable cord. Mild swelling of left foot with erythema at the base of the second and third digit. No appreciable swelling of right foot. Const Vital Signs: 10/25/24 07:10 10/25/24 07:10 10/25/24 07:23 Temperature 98.1 F Temperature Source Temporal Pulse Rate 87 84 Respiratory Rate 14 16 Respiratory Effort Normal Respiratory Depth Normal Respiratory Pattern Normal Blood Pressure 161/110 H 155/106 H Blood Pressure Mean 127 122 Pulse Ox 94 94 Oxygen Delivery Method Room Air Room Air Room Air MDM MDM MDM Narrative Medical decision making narrative: Differential diagnosis includes but not limited to, mainly for his cough bronchitis with persistent cough versus chronic cough versus pneumonia versus pneumothorax. Chest x-ray will be obtained to look for any acute lung pathology. Regarding his left foot swelling and redness, differential does include cellulitis versus DVT. I have low suspicion for necrotizing fasciitis as has been ongoing for a week. X-rays will be obtained of the left foot as well to rule out any fracture/hairline fracture. Ultrasound will be obtained of both lower extremities to rule out DVT as well. I reviewed the initial ultrasound report of the bilateral lower extremities and there is no evidence of DVT. I reviewed his laboratory work and he has elevation of his white count of 16.5 with hemoglobin 13.3 and hematocrit 40.6. Sodium 139 and potassium normal at 4.1, chloride elevated at 108 which I think is nonspecific, BUN of 28 creatinine 1.31, but he does have history of chronic kidney disease. Glucose appropriately elevated at 106. Chest x-ray interpreted by myself independently does show bilateral infiltrates. No pneumothorax. I reviewed the radiology report which comments on the interval development of bilateral infiltrates right greater than left. Concern would be for multifocal infectious process. As he has had a cough for a month, I do not feel that respiratory swabbing would be indicated for COVID or influenza. With concern for CHF, I did add a BNP and is only slightly elevated at 154. I do not feel that he requires Lasix. I do not feel that he requires observation or admission for an echocardiogram either. X-ray of right foot interpreted by myself independently shows no evidence of acute fracture. There is noted soft tissue swelling. I do feel that he may have an early cellulitis as he does not have any evidence of DVT. At this point in time, he was started on his first dose of Levaquin and prescription written for the next 7 days. I feel this would cover any cellulitis as well as his pneumonia. He will follow-up with his primary care provider. I wrote him a prescription for an inhaler as well. Return instructions to the emergency department were reviewed. Disposition is discharged home in stable condition. History & Record Review Discussion w/independent historian: Patient Additional record(s) reviewed:: Prior labs Lab Data Attestation: I reviewed the patient's lab results. Labs: Laboratory Results - last 24 hr 10/25/24 08:36 WBC 16.5 H RBC 4.61 Hgb 13.3 Hct 40.6 MCV 88.1 MCH 28.9 MCHC 32.8 RDW Std Deviation 42.5 RDW Coeff of Jacinta 13.3 Plt Count 416 MPV 10.3 Immature Gran % (Auto) 0.700 Neut % (Auto) 73.9 H Lymph % (Auto) 13.1 L Logan % (Auto) 11.0 H Eos % (Auto) 0.5 Baso % (Auto) 0.8 Absolute Neuts (auto) 12.2 H Absolute Lymphs (auto) 2.15 Nucleated RBC % 0 Differential Comment COMMENT Diff Path Review May foll Sodium 139 Potassium 4.1 Chloride 108 H Carbon Dioxide 26.0 Anion Gap 4 L BUN 28 H Creatinine 1.31 H Estim Creat Clear Calc 116.09 Est GFR (MDRD) Af Amer 80 Est GFR (MDRD) Non-Af 66 BUN/Creatinine Ratio 21.4 H Glucose 106 Calcium 9.0 B-Natriuretic Peptide 154.4 H Radiography Diagnostic Testing: Clinical Impression(s) from Imaging Studies Chest X-Ray 10/25/24 07:45 IMPRESSION: Interval development of large bilateral pulmonary infiltrates, worse within the right lower lung zone. These findings are highly concerning for multifocal infectious process. Follow-up until complete resolution is recommended. If this finding remains on subsequent short-term imaging, then CT chest would be recommended to rule out underlying mass. Reading Location: [facility] Foot X-Ray 10/25/24 07:45 IMPRESSION: Soft tissue swelling. No fracture or dislocation is seen within the left foot. Reading Location: [facility] Discharge Plan Triage Chief Complaint: Cough ED Provider: Sameer Rai Dx/Rx/DC Orders Clinical Impression: Swelling of left foot, Pneumonia, Cellulitis Instructions: ED Cellulitis, ED Peripheral Edema, Unilateral, ED Pneumonia (Adult) Prescriptions: New levofloxacin 750 mg tablet 750 mg PO DAILY Qty: 7 0RF albuterol sulfate [Ventolin HFA] 90 mcg/actuation HFA aerosol inhaler 1 - 2 puff inhalation Q4H PRN PRN (Reason: Wheezing) Qty: 1 0RF No Action metoprolol tartrate 25 MG tablet 25 mg PO DAILY Primary Care Provider: Care Physician,No Primary Referrals: Care Physician,No Primary [Primary Care Provider] - Activity Restrictions/Additional Instructions: Take antibiotics as directed. Return with increased swelling, redness of left foot that is increasing, fever, shortness of breath, new or worsening symptoms. Print Language: Turkmen Disposition Disposition: Home, Self Care
--- NOTE | 2024-10-25 07:45 | RAD_ITS ---
PROCEDURE: CHEST PA AND LATERAL REASON FOR EXAM: Cough TECHNIQUE: Single frontal image including the chest and abdomen. COMPARISON: Chest x-ray dated 05/26/2020. FINDINGS: Median sternotomy wires, aortic endograft remains stable with the appearance. Surgical clips seen overlying the bilateral upper chest regions laterally, etiology to be determined. Interval development of bilateral large pulmonary infiltrates, worse within the right lower lung region. These findings may suggest multifocal pneumonia. There is no pneumothorax. No acute osseous abnormalities. RAD/Chest PA and Lateral IMPRESSION: Interval development of large bilateral pulmonary infiltrates, worse within the right lower lung zone. These findings are highly concerning for multifocal infectious process. Follow-up until complete resolut ion is recommended. If this finding remains on subsequent short-term imaging, then CT chest would be recommended to rule out u nderlying mass. Reading Location: [id number]
--- NOTE | 2024-10-25 07:45 | RAD_ITS ---
PROCEDURE: FOOT MIN 3 VIEWS REASON FOR EXAM: Swelling. TECHNIQUE: Three views of the left foot COMPARISON: None. FINDINGS: No visible fracture. No suspicious bone lesion. Normal alignment. Soft tissues swelling is present. RAD/Foot min 3 Views IMPRESSION: Soft tissue swelling. No fracture or dislocation is seen within the left foot. Reading Location: [id number]
[2024-10-25 08:48] LABS: Absolute Lymphocyte Count 2.15 X10^3/uL (0.83-4.51); Absolute Neutrophil Count 12.2 X10^3/uL (2.0-7.7); Basophil# 0.13 X10^3/uL; Basophil% 0.8 % (0-1); Eosinophil# 0.08 X10^3/uL; Eosinophils% 0.5 % (0-5); Hematocrit 40.6 % (40-54); Hemoglobin 13.3 g/dL (13.0-16.5); Lymphocyte # 2.15 X10^3/ul (0.83-4.51); Lymphocyte % 13.1 % (19-41); Mean Corp Hgb Conc 32.8 g/dL (32-36); Mean Corpuscular Hgb 28.9 pg (27.0-32.0); Mean Corpuscular Volume 88.1 fL (80-94); Mean Platelet Vol. 10.3 fl (6.2-12.0); Monocyte# 1.81 X10^3/uL; NRBC Flagged by Analyzer 0 % (0-5); Neutrophil # 12.19 X10^3/uL (2.7-7.7); Neutrophil % 73.9 % (47-70); POSITIVE DIFFERENTIAL YES; Platelet Count 416 K/mm3 (150-450); RBC Distribution Width CV 13.3 % (11.6-14.6); RBC Distribution Width SD 42.5 fl (35.1-43.9); Red Blood Count 4.61 M/mm3 (4.6-6.2); White Blood Count 16.5 K/mm3 (4.4-11.0)
[2024-10-25 08:50] LABS: Differential Indicated SCAN CRITERIA MET
[2024-10-25 09:01] LABS: Anion Gap 4 (5-15); BUN 28 mg/dL (7-18); BUN/Creat Ratio 21.4 RATIO (10-20); Chloride 108 mmol/L (98-107); Creatinine, Serum 1.31 mg/dL (0.70-1.30); EST Glomerular Filtration Rate 66 mL/min (>60); Est Glom Filt Rate - Afr Amer 80 mL/min (>60); Estimated Creatinine Clearance 116.09 ml/min; Glucose 106 mg/dL (74-106); Potassium 4.1 mmol/L (3.5-5.1); Sodium Level 139 mmol/L (136-145)
[2024-10-25 10:53] LABS: BNP,B-Type NATRIURETIC PEPTIDE 154.4 pg/mL (0-100)
--- NOTE | 2024-10-25 10:58 | CM.ED ---
Social work Reason for referral: no PCP Referral source: case find This SW identified patient's lack of PCP and need for resources. This SW entered patient's room, introducing self and role at [facility]. Patient welcomed SW visit, though stated patient was tired and did not know how present patient could be for the conversation. Patient confirmed not currently having a PCP, but reported having an appointment set up through the [facility] that had to keep being rescheduled. Patient denied needing PCP resources. 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 Patient stated trying for Medicaid in the past, but knowing patient makes too much money to qualify. Patient denied needing Medicaid resources and denied needing further resources at this time. Kristal Wade, LITHOGRAPHY CONTACT WORKER, SENIOR BOILER OPERATOR
[2024-10-25 11:10] VITALS: BP 119/78; PULSE 67; RESP 16; TEMP 36.6; O2SAT 98
[2024-10-25] MEDS: levoFLOXacin 750 MG Tablet PO (11:15)
[2024-10-25 11:54] LABS: Pathologist Review Reviewed
== END 2024-10-25 11:19 | disposition home or self-care (01) ==
PROVIDERS: Emergency Provider Emergency Medicine; Visit Provider Emergency Medicine
DX: M79.89 Other specified soft tissue disorders (principal); L03.116 Cellulitis of left lower limb; J18.9 Pneumonia, unspecified organism
CPT/HCPCS: 71046; 73630; 80048; 83880; 85025; 93970; 99283; A4216

== ENCOUNTER 2025-01-04 00:32 | Emergency (ER) | payer SELFPAY ==
[2025-01-04] VITALS (31 sets, daily range): BP systolic 120–170; BP diastolic 73–119; PULSE 68–89; RESP 13–31; TEMP 36.1–36.8; O2SAT 95–99; BMI 36.3
--- NOTE | 2025-01-04 00:58 | CT_ITS ---
PROCEDURE: CT CHEST, ABD, PEL W/CONTRAST 01/04/2025 REASON FOR EXAM: ASCITES TECHNIQUE: Chest, abdomen and pelvis CT with intravenous contrast. Coronal and Sagittal reconstruction series were provided. One or more dose reduction techniques were used (e.g., Automated exposure control, adjustment of the mA and/or kV according to patient size, use of iterative reconstruction technique. PATIENT PREPARATION: Per protocol ORAL CONTRAST TYPE: None. CONTRAST: 96 cc Isovue 370 IV RADIATION DOSE SUMMARY: CTDlvol: 55 mGy DLP: 2756.64 mGycm COMPARISON: CT abdomen and pelvis 09/09/2020 FINDINGS: CT CHEST: The central airways appear patent. Mild atelectasis at the lingula and left lower lobe versus scarring. No focal consolidation. The lungs otherwise appear clear. Undulation of a non aneurysmal ascending thoracic aorta without dissection. Fusiform dilated appearance of the right brachiocephalic. Aortic graft bypass left subclavian artery appears patent. Aortic arch endo stent graft repair to the distal descending thoracic aorta at the level of the diaphragmatic hiatus appears patent. No contrast filling dissection identified. Marifer stent aortic aneurysm does not contain contrast and measures up to 7 cm. At the diaphragmatic hiatus there is suggestion of a possible subtle endo graph leak for example axial 136 abdominal sagittal 107 with an approximate 4.8 by 2.9 cm collection, aortic aneurysm or pseudoaneurysm, beneath the right diaphragmatic nicole. This could be compared with recent imaging when available. Pretracheal, subcarinal and right hilar adenopathy is nonspecific. Main pulmonary artery measures 4.3 cm which can be seen with pulmonary artery hypertension. Cardiomegaly. No pericardial or pleural effusion. Status post median sternotomy CT ABDOMEN/PELVIS: Hepatic steatosis. The spleen is not present. The adrenal glands and pancreas appear within limits. Bilateral renal cortical thinning and areas of small scarring. Symmetric nephrograms without hydronephrosis. Abnormal appearing gallbladder with wall thickening, edema and a few faint small stones concerning for possible cholecystitis, clinically correlate. Very small amount of abdominopelvic free fluid. Ventral abdominal wall hernias 1 containing transverse colon for example axial 56, 1 some small bowel axial 77 and another containing fat without associated obstructive change. No bowel dilation or free air. Thin, atretic appearing appendix suggested without secondary signs. Undulating abdominal aorta status post repair appears patent without dissection. The celiac, SMA and renal arteries contain contrast. Right renal artery stent again noted. Aortoiliac graft appears patent. The bladder appears within limits. Anasarca. Leftward lumbar curvature, spondylosis/discogenic change CT/CT Chest, Abd, Pel w/Contrast IMPRESSION: Abnormal appearing gallbladder with wall thickening, edema and a few faint smal l stones concerning for possible cholecystitis, clinically correlate. Very small amount of abdominopelvic free fluid. Previous thoracic aorta endograft stent repair and abdominal aorta repair. At the diaphragmatic hiatus there is suggestion of a possible subtle endo graph leak for example axial 136 abdominal sagittal 107 with an approximate 4.8 by 2.9 cm collection, aortic aneurysm or pseudoaneurysm , beneath the right diaphragmatic nicole. This could be compared with recent imaging when available. Pretracheal, subcarinal and right hilar adenopathy is nonspecific. Main pulmonary artery measures 4.3 cm which can be seen with pulmonary artery h ypertension. Cardiomegaly. Abnormal appearing gallbladder with wall thickening, edema and a few faint smal l stones concerning for possible cholecystitis, clinically correlate. Very small amount of abdominopelvic free fluid. Findings discussed by myself by phone with Dr. David at 3 a.m. 01/04/2025 Reading Location: [id number]
[2025-01-04 01:08] LABS: Absolute Lymphocyte Count 2.45 X10^3/uL (0.83-4.51); Absolute Neutrophil Count 8.6 X10^3/uL (2.0-7.7); Basophil# 0.11 X10^3/uL; Basophil% 0.9 % (0-1); Eosinophil# 0.06 X10^3/uL; Eosinophils% 0.5 % (0-5); Hematocrit 46.5 % (40-54); Hemoglobin 15.2 g/dL (13.0-16.5); Lymphocyte # 2.45 X10^3/ul (0.83-4.51); Lymphocyte % 19.1 % (19-41); Mean Corp Hgb Conc 32.7 g/dL (32-36); Mean Corpuscular Hgb 27.9 pg (27.0-32.0); Mean Corpuscular Volume 85.3 fL (80-94); Monocyte% 11.7 % (0-10); NRBC Flagged by Analyzer 0 % (0-5); Neutrophil # 8.61 X10^3/uL (2.7-7.7); Neutrophil % 67.3 % (47-70); Platelet Count 336 K/mm3 (150-450); RBC Distribution Width CV 14.4 % (11.6-14.6); RBC Distribution Width SD 44.2 fl (35.1-43.9); Red Blood Count 5.45 M/mm3 (4.6-6.2); White Blood Count 12.8 K/mm3 (4.4-11.0)
[2025-01-04] MEDS: cloNIDine HCl 0.1 MG Tablet PO (01:17)
[2025-01-04 01:30] LABS: AST(SGOT) 67 U/L (<=37); Alanine Aminotransfer ALT/SGPT 72 U/L (<=46); Alkaline Phosphatase 97 U/L (40-129); Anion Gap 13 (5-15); BUN 23 mg/dL (4-19); BUN/Creat Ratio 17.3 RATIO (10-20); Bilirubin, Direct 0.68 mg/dL (0.00-0.30); Chloride 101 mmol/L (98-108); Creatinine, Serum 1.32 mg/dL (0.70-1.20); EST Glomerular Filtration Rate 72 (>60); Estimated Creatinine Clearance 116.21 ml/min (50-250); Globulin 3.5 g/dL (2.2-4.2); Glucose 137 mg/dL (70-99); Potassium 4.3 mmol/L (3.3-5.1); Pro- Brain NATRIURETIC PEPTIDE 3818 pg/mL (<=450); Protein, Total 7.5 g/dL (5.9-8.4); Sodium Level 136 mmol/L (133-145); Total Bilirubin 1.38 mg/dL (0.00-1.30)
--- NOTE | 2025-01-04 02:21 | EKG12_ITS ---
Test Reason : SOB Blood Pressure : */* mmHG Vent. Rate : 78 BPM Atrial Rate : 78 BPM P-R Int : 194 ms QRS Dur : 110 ms QT Int : 400 ms P-R-T Axes : 16 108 43 degrees QTcB Int : 456 ms Normal sinus rhythm Rightward axis Borderline ECG Confirmed by Jose Snyder ([id number]), photograph editor CHRIS HERNANDEZ ([id number]) on 01/06/2025 12:47:00 PM Referred By: DES Confirmed By: Jose Snyder
[2025-01-04] MEDS: Furosemide 40 MG/4 ML Vial IV (02:40)
--- NOTE | 2025-01-04 04:37 | US_ITS ---
PROCEDURE: GALLBLADDER 01/04/2025 REASON FOR EXAM: ABNORMAL CT SCAN COMPARISON: Preceding CT abdomen and pelvis FINDINGS: The pancreas is obscured by bowel gas. The liver is enlarged measuring 21.5 cm. Echogenicity appears within limits. No evidence of intrahepatic biliary ductal dilation. Hepatic color flow is present. Flow within the portal vein appears hepatopetal as expected. The gallbladder appears distended measuring 11 cm in length. Gallbladder wall measures thick up to 7 mm. Small amount of gravel present. Report of a negative sonographic Norton's sign. CBD 3 mm. The right kidney measures 10.8 x 5.4 x 4.2 cm with a cortical thickness of 1.7 cm. No right hydronephrosis, renal stone or perinephric edema identified. No free fluid seen. US/Gallbladder IMPRESSION: The gallbladder appears distended measuring 11 cm in length. Gallbladder wall m easures thick up to 7 mm. Small amount of gravel present. Report of a negative sonographic Norton's sign. Reading Location: [id number]
--- NOTE | 2025-01-04 05:58 | EX.ED.DYSGE1 ---
HPI History of Present Illness Chief Complaint: Shortness of Breath Informant: patient and spouse/S.O. Narrative Narrative: Patient is a 35-year-old male with past medical history of Marfan syndrome and an aortic dissection secondary to that requiring stenting. He also has a history of hypertension and chronic kidney disease. He was seen recently secondary to shortness of breath and there was concern for pneumonia for which he was placed on antibiotics. He states that after taking the medication he did report feeling better. However in the last few days he has noticed increased swelling of his legs and states he is felt short of breath with exertion. He also reports that he had 1 bout of vomiting today and is felt mildly nauseous throughout the day but denies fevers chills or abdominal pain. Based on his persistent leg swelling and the shortness of breath sensation he presents for evaluation. Patient also states his blood pressure has been running high throughout the day despite taking his normal medication [facility] Home Medications ?Medication ?Instructions ?Recorded ?Last Taken ?Type metoprolol tartrate 25 mg tablet 25 mg PO DAILY 09/09/20 Unknown History albuterol sulfate 90 mcg/actuation 1 - 2 puff inhalation Q4H PRN PRN 10/25/24 Unknown Rx aerosol inhaler (Ventolin HFA) Wheezing #1 ea furosemide 20 mg tablet (Lasix) 20 mg PO DAILY 30 days #30 tabs 01/04/25 Unknown Rx metoprolol tartrate 25 mg tablet 25 mg PO BID 30 days #60 tabs 01/04/25 Unknown Rx Allergy/AdvReac Type Severity Reaction Status Date / Time fentanyl AdvReac Other Verified 01/04/25 00:33 Surgical History H/O splenectomy Social History Smoking Status: Never smoker ROS ROS ED Constitutional Constitutional ED: Denies chills or fever(s) Eyes Eyes: Denies change in vision ENT ENT ED: Denies sore throat Cardiovascular Cardiovascular: Denies chest pain, palpitations or racing heartbeat Respiratory/Chest Respiratory/Chest: Reports dyspnea and dyspnea on exertion; Denies cough Gastrointestinal Gastrointestinal: Reports nausea and other Details: Positive abdominal distention ; Denies abdominal pain, diarrhea or vomiting Genitourinary Genitourinary ED: Denies dysuria Musculoskeletal Musculoskeletal: Denies back pain Integumentary Denies rash Neurologic Neurologic: Denies headache(s) Hematologic/Lymphatic Hematologic/Lymphatic: Denies easy bleeding or easy bruising Allergic/Immunologic Allergic/Immunologic ED: Denies mouth swelling or tongue swelling EXAM Physical Exam Const Vital Signs: 01/04/25 00:33 01/04/25 00:37 01/04/25 00:37 Temperature 96.9 F L 96.9 F L Temperature Source Temporal Temporal Pulse Rate 84 81 Respiratory Rate 21 H 18 Respiratory Effort Normal Respiratory Depth Respiratory Pattern Normal Blood Pressure 170/119 H 170/119 H Blood Pressure Mean 136 136 Pulse Ox 98 98 Oxygen Delivery Method Room Air Room Air 01/04/25 00:37 01/04/25 01:33 01/04/25 01:37 Temperature 98.1 F Temperature Source Oral Pulse Rate 69 72 Respiratory Rate 15 15 Respiratory Effort Short of Breath Respiratory Depth Normal Respiratory Pattern Tachypnea Blood Pressure 143/93 H 152/109 H Blood Pressure Mean 109 123 Pulse Ox 96 97 Oxygen Delivery Method Room Air Room Air Room Air 01/04/25 02:19 01/04/25 02:30 01/04/25 02:42 Temperature Temperature Source Pulse Rate 70 73 71 Respiratory Rate 21 H 20 H 30 H Respiratory Effort Respiratory Depth Respiratory Pattern Blood Pressure 162/116 H 162/116 H Blood Pressure Mean 130 131 Pulse Ox 96 95 97 Oxygen Delivery Method Room Air 01/04/25 02:45 01/04/25 02:45 01/04/25 03:00 Temperature 98.2 F Temperature Source Oral Pulse Rate 71 72 71 Respiratory Rate 17 28 H 21 H Respiratory Effort Respiratory Depth Respiratory Pattern Blood Pressure 140/101 H 140/101 H 138/95 H Blood Pressure Mean 114 113 109 Pulse Ox 97 97 97 Oxygen Delivery Method Room Air Room Air 01/04/25 03:00 01/04/25 03:15 01/04/25 03:30 Temperature Temperature Source Pulse Rate 75 71 77 Respiratory Rate 20 H 18 20 H Respiratory Effort Respiratory Depth Respiratory Pattern Blood Pressure 138/95 H 150/91 H 138/87 H Blood Pressure Mean 109 108 104 Pulse Ox 95 97 97 Oxygen Delivery Method Room Air Room Air Room Air 01/04/25 03:45 01/04/25 04:00 01/04/25 04:15 Temperature Temperature Source Pulse Rate 72 80 71 Respiratory Rate 17 31 H 19 H Respiratory Effort Respiratory Depth Respiratory Pattern Blood Pressure 151/97 H 144/95 H Blood Pressure Mean 114 109 Pulse Ox 99 99 Oxygen Delivery Method Room Air 01/04/25 04:30 01/04/25 04:45 01/04/25 05:00 Temperature Temperature Source Pulse Rate 71 70 76 Respiratory Rate 22 H 31 H 20 H Respiratory Effort Respiratory Depth Respiratory Pattern Blood Pressure 153/98 H 153/96 H 143/98 H Blood Pressure Mean 115 114 111 Pulse Ox 99 98 97 Oxygen Delivery Method Room Air Room Air 01/04/25 05:15 01/04/25 05:30 01/04/25 05:45 Temperature Temperature Source Pulse Rate 72 68 69 Respiratory Rate 26 H 13 13 Respiratory Effort Respiratory Depth Respiratory Pattern Blood Pressure 161/98 H 155/77 H 135/73 H Blood Pressure Mean 115 99 92 Pulse Ox 95 Oxygen Delivery Method Room Air 01/04/25 06:00 01/04/25 06:15 Temperature Temperature Source Pulse Rate 71 69 Respiratory Rate 27 H 17 Respiratory Effort Respiratory Depth Respiratory Pattern Blood Pressure 147/89 H 147/106 H Blood Pressure Mean 106 118 Pulse Ox 97 98 Oxygen Delivery Method Room Air Room Air Positive well nourished, well developed and obese General Appearance ED: well developed; Negative for pallor Nutritional Appearance: obese HEENT HEENT Narrative: Normocephalic atraumatic No tongue or lip swelling no oral lesions no airway edema or compromise No signs of infection noted in the posterior pharynx Eyes PERRL and EOMs intact bilaterally Eyes Narrative: Patient has a cataract present in the right eye which is chronic in nature Left eye is otherwise normal General Eye ED: Negative for pale conjunctiva or scleral icterus Neck supple and no JVD Neck Narrative: No nuchal rigidity or meningeal signs noted Chest Wall palpation of chest normal Chest Narrative: No bony deformity or subcutaneous emphysema Resp normal respiratory effort and clear to auscultation bilaterally Resp Narrative: Breath sounds are slightly diminished throughout but overall clear to auscultation No nasal flaring retractions tachypnea accessory muscle use or crackles present No dyspnea with speech Cardio regular rate and regular rhythm Rate: other Other Details: Radial and carotid pulses are equal and symmetric GI non-tender GI Narrative: Abdomen is soft with questionable distention. There is no pain with palpation. Bowel sounds are normal active No voluntary guarding or rigidity or pulsatile mass Negative Norton sign There is questionable fluid wave noted There is a hernia present in the left mid to upper abdomen that is reducible in nature Auscultation: normoactive bowel sounds Palpation: soft Back/Spine no CVA tenderness Extremity Extremity Narrative: Patient has +2-3 pitting edema to the lower extremities that is equal and symmetric Negative Homans' sign bilaterally Neuro oriented x3, CN's II-XII intact bilaterally and no sensory deficits noted Sensorium / Orientation: alert Motor Exam: strength 5/5 throughout Psych mental status grossly normal Skin no rashes or lesions noted General Skin Exam: Negative for jaundice or pallor MDM MDM MDM Narrative Medical decision making narrative: Patient presented to the ER hypertensive but otherwise with stable vitals. He reported shortness of breath but can talk in full sentences and his pulse ox is 98 to 100% on room air. With his bilateral leg swelling there is concern this could be related to HO[place]AY causing cirrhotic changes and abdominal ascites. With the hypertension there is also concern for endorgan damage causing acute kidney injury. As he does not have headache or neurologic findings I have low concern for subarachnoid or subdural hemorrhage and there is no need for a CT of the brain. With his swelling and shortness of breath are also has concern for potential congestive heart failure exacerbation and pleural effusions or missed pneumonia. Secondary to this basic labs were obtained and patient did have a CT of the chest abdomen and pelvis performed. Lung tissue revealed no fluid overload vascular congestion pneumonia or pneumothorax. Abdominal portion displayed a fatty liver without cirrhotic changes or signs of ascites. His proBNP is elevated at approximately 4000 which would correlate with congestive heart failure and secondary to his he was given IV Lasix as well as captopril. He was treated with clonidine and labetalol secondary to the hypertension. With the provided medications his blood pressure reduced between 15 and 25% which is the goal reduction in the ER. His EKG revealed no ischemic changes. His creatinine is slightly elevated at 1.3 but chart review reveals that this is his baseline secondary to chronic kidney disease. The patient's gallbladder on CT scan did show changes concerning for potential infection and there is slight elevation to his liver enzymes. He does not have any pain around the gallbladder in the right upper quadrant but the case was discussed with the general surgeon Dr. Little who states that with his sensation of abdominal fullness and nausea and the mild elevation to his liver enzymes that he will need a gallbladder ultrasound to rule out acute cholecystitis. At this time the plan is for potential discharge if the ultrasound does not reveal findings of acute cholecystitis as his blood pressure has improved and as he is not hypoxic or in respiratory distress there is no need for admission secondary to the CHF. However if there are findings concerning for acute cholecystitis because of the patient's history of Marfan syndrome and aortic stenting/grafting he would require transfer to the [facility] where this procedure was performed in order to potentially undergo cholecystectomy. I informed the patient of this plan of care. At this time we are waiting for the gallbladder ultrasound to be obtained. He is agreeable with the plan of care with potential transfer if signs of infection versus discharge home if normal and we will increase his metoprolol and add a diuretic secondary to the accelerated hypertension Please note the patient was also walked secondary to his complaint of dyspnea with exertion and his pulse ox remained 95 to 100% on room air and his heart rate was stable Patient has been signed out to the day physician Dr. Nelson while awaiting the results of the ultrasound. History & Record Review Discussion w/independent historian: Patient and Significant other Lab Data Attestation: I reviewed the patient's lab results. Labs: Laboratory Results - last 24 hr 01/04/25 00:45 WBC 12.8 H RBC 5.45 Hgb 15.2 Hct 46.5 MCV 85.3 MCH 27.9 MCHC 32.7 RDW Std Deviation 44.2 H RDW Coeff of Jacinta 14.4 Plt Count 336 MPV 10.0 Immature Gran % (Auto) 0.500 Neut % (Auto) 67.3 Lymph % (Auto) 19.1 [place] % (Auto) 11.7 H Eos % (Auto) 0.5 Baso % (Auto) 0.9 Absolute Neuts (auto) 8.6 H Absolute Lymphs (auto) 2.45 Nucleated RBC % 0 Sodium 136 Potassium 4.3 Chloride 101 Carbon Dioxide 22.0 Anion Gap 13 BUN 23 H Creatinine 1.32 H Estim Creat Clear Calc 116.21 Est GFR (MDRD) Non-Af 72 BUN/Creatinine Ratio 17.3 Glucose 137 H Calcium 9.0 Magnesium 2.0 Total Bilirubin 1.38 H Direct Bilirubin 0.68 H AST 67 H ALT 72 H Alkaline Phosphatase 97 NT pro BNP II 3818 H Total Protein 7.5 Albumin 4.0 Globulin 3.5 Radiography Diagnostic Testing: Clinical Impression(s) from Imaging Studies Chest/Abdomen/Pelvis CT 01/04/25 00:58 IMPRESSION: Abnormal appearing gallbladder with wall thickening, edema and a few faint small stones concerning for possible cholecystitis, clinically correlate. Very small amount of abdominopelvic free fluid. Previous thoracic aorta endograft stent repair and abdominal aorta repair. At the diaphragmatic hiatus there is suggestion of a possible subtle endo graph leak for example axial 136 abdominal sagittal 107 with an approximate 4.8 by 2.9 cm collection, aortic aneurysm or pseudoaneurysm, beneath the right diaphragmatic nicole. This could be compared with recent imaging when available. Pretracheal, subcarinal and right hilar adenopathy is nonspecific. Main pulmonary artery measures 4.3 cm which can be seen with pulmonary artery hypertension. Cardiomegaly. Abnormal appearing gallbladder with wall thickening, edema and a few faint small stones concerning for possible cholecystitis, clinically correlate. Very small amount of abdominopelvic free fluid. Findings discussed by myself by phone with Dr. David at 3 a.m. 01/04/2025 Reading Location: [facility] Management Discussion w/another healthcare provider: Airline Ticket Agent and Radiologist Discharge Plan Triage Chief Complaint: Shortness of Breath Other Complaint: Hypertension ED Provider: Isidoro David Dx/Rx/DC Orders Clinical Impression: Accelerated hypertension, CKD (chronic kidney disease) stage 3, GFR 30-59 ml/min, Marfan syndrome, Congestive heart failure Instructions: Hypertension Dc, ED Heart Failure, Congestive (CHF) Prescriptions: New metoprolol tartrate 25 mg tablet 25 mg PO BID 30 Days Qty: 60 0RF furosemide [Lasix] 20 mg tablet 20 mg PO DAILY 30 Days Qty: 30 0RF No Action metoprolol tartrate 25 MG tablet 25 mg PO DAILY albuterol sulfate [Ventolin HFA] 90 mcg/actuation HFA aerosol inhaler 1 - 2 puff inhalation Q4H PRN PRN (Reason: Wheezing) Qty: 1 0RF Primary Care Provider: Care Physician,No Primary Referrals: Jose Snyder MD [Med Staff - Active Staff] - (Hypertension and CHF) Care Physician,No Primary [Primary Care Provider] - Activity Restrictions/Additional Instructions: Please increase your metoprolol to 1 pill twice a day as directed on the new prescription for improved blood pressure control. Begin taking the Lasix daily as well to help with edema and CHF. Wear your compression stockings as well to help with your leg swelling. Please follow-up with cardiology/Dr. Snyder in order to discuss need for potential echocardiogram to further assess the severity of your CHF and return to the ER should you have any further concern. Print Language: [place]se
--- NOTE | 2025-01-04 10:21 | ED.RN ---
[facility] TOLD THIS HISTORIC SITES SUPERVISOR THERE IS A DELAY ON HER END TO FIND AN ETA FOR A CREW TO SEND TO US. THEY REQUESTED IF I FOUND A SOONER RIDE ABLE TO TAKE THIS PT. TO CONTACT THEM BACK WITH AN UPDATE. THIS HISTORIC SITES SUPERVISOR CALLED PHYSICIANS TO SET UP RIDE FOR TRANSFER. ETA GIVEN WAS [id number]. THIS SECTRETARY CALLED [facility] BACK AND INFORMED THEM OF THIS. [facility] #: [phone]
[2025-01-04] MEDS: Esmolol 2,500 MG/250 ML IV.SOLN. 40.6 MG CONT INF (11:49)
== END 2025-01-04 12:15 | disposition short-term general hospital (02) ==
LOC: ED 01:07
PROVIDERS: Emergency Provider Emergency Medicine; Visit Provider Emergency Medicine
DX: I13.0 Hypertensive heart and chronic kidney disease with heart failure and stage 1 through stage 4 chronic kidney disease, or unspecified chronic kidney disease (principal); I50.9 Heart failure, unspecified; N18.30 Chronic kidney disease, stage 3 unspecified; Q87.40 Marfan syndrome, unspecified; T82.330A Leakage of aortic (bifurcation) graft (replacement), initial encounter; R93.2 Abnormal findings on diagnostic imaging of liver and biliary tract; Z79.899 Other long term (current) drug therapy; Z90.81 Acquired absence of spleen
CPT/HCPCS: 71260; 74177; 76705; 80048; 80076; 83735; 83880; 85025; 93005; 96365; 96375; 96376; 99285; Q9967; A4216; J1940